=== PATIENT | female | born 1950 | race Caucasian/White ===

== ENCOUNTER 2019-04-25 08:23 | Outpatient (RCR) | payer MEDICARE, SELFPAY ==
[2019-02-22 08:59] LABS: Hematocrit 40.3 % (35.0-42.0); Hemoglobin 13.1 g/dL (11.7-13.8)
[2019-02-22 09:16] LABS: INR 2.2; Prothrombin Time 23.5 Seconds (9.64-11.0)
[2019-03-23 09:36] LABS: Hematocrit 43.3 % (35.0-42.0); Hemoglobin 14.2 g/dL (11.7-13.8)
[2019-03-23 09:48] LABS: INR 2.7; Prothrombin Time 28.8 Seconds (9.64-11.0)
[2019-04-25 08:40] LABS: Hematocrit 42.1 % (35.0-42.0); Hemoglobin 13.8 g/dL (11.7-13.8)
[2019-04-25 08:51] LABS: INR 2.7; Prothrombin Time 28.3 Seconds (9.64-11.0)
== END 2019-05-23 23:59 | disposition home or self-care (01) ==
LOC: CHSLAB 08:23
PROVIDERS: PCP Internal Medicine; Visit Provider Internal Medicine
DX: Z79.01 Long term (current) use of anticoagulants (principal); D64.9 Anemia, unspecified
CPT/HCPCS: 36415; 85014; 85018; 85610

== ENCOUNTER 2019-06-17 08:14 | Outpatient (CLI) | payer MEDICARE, MEDICAID, SELFPAY ==
[2019-06-17 08:27] LABS: Hematocrit 41.3 % (35.0-42.0); Hemoglobin 13.6 g/dL (11.7-13.8)
[2019-06-17 08:39] LABS: INR 3.8; Prothrombin Time 37.8 Seconds (9.64-11.0)
== END 2019-06-17 08:15 | disposition home or self-care (01) ==
LOC: CHSLAB 08:17
PROVIDERS: PCP Internal Medicine; Visit Provider Internal Medicine
DX: Z79.01 Long term (current) use of anticoagulants (principal); D64.9 Anemia, unspecified
CPT/HCPCS: 36415; 85014; 85018; 85610

== ENCOUNTER 2019-08-14 08:17 | Outpatient (RCR) | payer MEDICARE, SELFPAY ==
[2019-05-30 08:40] LABS: Hematocrit 39.9 % (35.0-42.0); Hemoglobin 13.2 g/dL (11.7-13.8)
[2019-05-30 09:05] LABS: INR 3.7; Prothrombin Time 36.1 Seconds (9.64-11.0)
[2019-07-04 08:23] LABS: Hematocrit 41.1 % (35.0-42.0); Hemoglobin 13.3 g/dL (11.7-13.8)
[2019-07-04 08:50] LABS: INR 2.8; Prothrombin Time 27.6 Seconds (9.64-11.0)
[2019-08-14 08:58] LABS: INR 2.4; Prothrombin Time 24.2 Seconds (9.64-11.0)
== END 2019-08-28 23:59 | disposition home or self-care (01) ==
LOC: CHSLAB 08:17
PROVIDERS: PCP Internal Medicine; Visit Provider Internal Medicine
DX: Z79.01 Long term (current) use of anticoagulants (principal); D64.9 Anemia, unspecified
CPT/HCPCS: 36415; 85014; 85018; 85610

== ENCOUNTER 2019-10-18 07:59 | Outpatient (CLI) | payer MEDICARE, MEDICAID, SELFPAY ==
[2019-10-18] MEDS: DENOSUMAB 60 MG/ML SYRINGE SUB-Q (08:15)
--- NOTE | 2019-10-18 08:20 | PC.NURSE ---
PT TO ROOM 226 AMB PER SELF. A&OX3. HAS NO QUESTIONS OR COMPLAINTS. PROLIA INJECTION GIVEN SUBQ IN R ARM. SITE WITHOUT REDNESS, EDEMA OR DRAINAGE. BANDAID APPLIED. PT TOLERATED WELL. DISCHARGED TO HOME AMB PER SELF.
== END 2019-10-18 08:00 | disposition home or self-care (01) ==
LOC: CHSTREATRM 08:01
PROVIDERS: PCP Internal Medicine; Visit Provider Internal Medicine
DX: M81.0 Age-related osteoporosis without current pathological fracture (principal)
CPT/HCPCS: 96372; J0897

== ENCOUNTER 2019-12-22 08:10 | Outpatient (RCR) | payer MEDICARE, SELFPAY ==
[2019-10-05 08:34] LABS: Hematocrit 38.8 % (35.0-42.0); Hemoglobin 12.5 g/dL (11.7-13.8)
[2019-10-05 08:52] LABS: INR 2.5; Prothrombin Time 24.8 Seconds (9.64-11.0)
[2019-11-22 08:23] LABS: INR 2.7; Prothrombin Time 27.1 Seconds (9.64-11.0)
[2019-12-22 08:25] LABS: Hematocrit 41.1 % (35.0-42.0); Hemoglobin 13.2 g/dL (11.7-13.8)
== END 2020-01-03 23:59 | disposition home or self-care (01) ==
LOC: CHSLAB 08:10
PROVIDERS: PCP Internal Medicine; Visit Provider Internal Medicine
DX: Z79.01 Long term (current) use of anticoagulants (principal); D64.9 Anemia, unspecified
CPT/HCPCS: 36415; 85014; 85018; 85610

== ENCOUNTER 2020-02-02 10:07 | Outpatient (CLI) | payer MEDICARE, MEDICAID, SELFPAY ==
--- NOTE | ~2020-02-02 | XR_ITS ---
EXAMINATION: XR knee LT min 4V DATE: 02/02/2020 10:46 INDICATION: Left knee pain. TECHNIQUE: 4 views of left knee were obtained. COMPARISON: None. FINDINGS: Bone alignment is normal. No fracture. There is severe osteoarthritis of lateral compartmen t and mild osteoarthritis of medial and patellofemoral compartments. There is a moderate-sized knee j oint effusion. IMPRESSION: 1. Severe left knee osteoarthritis. 2. Moderate-sized left knee joint effusion. Reviewed, dictated and finalized at location A.
== END 2020-02-02 10:08 | disposition home or self-care (01) ==
LOC: CHSIMG 10:09
PROVIDERS: PCP Internal Medicine; Visit Provider Internal Medicine
DX: M25.562 Pain in left knee (principal); M17.12 Unilateral primary osteoarthritis, left knee; M25.462 Effusion, left knee
CPT/HCPCS: 73564

== ENCOUNTER 2020-03-12 08:48 | Outpatient (CLI) | payer MEDICARE, MEDICAID, SELFPAY ==
--- NOTE | ~2020-03-12 | XR_ITS ---
XR knee LT min 4V 03/12/2020 09:26 Indication: Knee pain for 10 years Procedure: 5 views left knee Comparison: 02/02/2020 Findings: There is severe tricompartment osteoarthritis of the left knee, most advanced in the latera l compartment. Osteopenia. Small joint effusion. Vascular calcifications are present. No acute fractu re or traumatic malalignment. Impression: 1: There osteoarthritis of the left knee. 2: Small left knee effusion. Reviewed, dictated and finalized at location A. APPLIANCE ADJUSTER Impression: 1: There osteoarthritis of the left knee. 2: Small left knee effusion.
[2020-03-12 09:29] LABS: INR 4.4; Prothrombin Time 42.9 Seconds (9.64-11.0)
== END 2020-03-12 08:49 | disposition home or self-care (01) ==
LOC: CHSLAB 08:51
PROVIDERS: PCP Internal Medicine; Visit Provider Orthopaedic Surgery
DX: M25.562 Pain in left knee (principal); I48.91 Unspecified atrial fibrillation
CPT/HCPCS: 36415; 73564; 85610

== ENCOUNTER 2020-04-16 08:22 | Outpatient (RCR) | payer MEDICARE, SELFPAY ==
[2020-01-30 08:51] LABS: INR 3.2
[2020-03-27 08:48] LABS: INR 2.9; Prothrombin Time 30.3 Seconds (9.50-12.10)
[2020-04-16 08:44] LABS: Prothrombin Time 31.3 Seconds (9.50-12.10)
== END 2020-04-29 23:59 | disposition home or self-care (01) ==
LOC: CHSLAB 08:22
PROVIDERS: PCP Internal Medicine; Visit Provider Internal Medicine
DX: I48.91 Unspecified atrial fibrillation (principal)
CPT/HCPCS: 36415; 85610

== ENCOUNTER 2020-06-10 08:21 | Outpatient (CLI) | payer MEDICARE, SELFPAY ==
[2020-06-10 08:45] LABS: Basophils Absolute Auto 0.04 K/mm3 (0.00-0.10); Basophils Percent Auto 0.6 % (0.0-1.0); Eosinophils Absolute Auto 0.03 K/mm3 (0.02-0.50); Eosinophils Percent Auto 0.4 % (1.0-6.0); Hematocrit 40.7 % (35.0-42.0); Immature Granulocyte Absolute 0.02 K/mm3 (0.00-0.00); Immature Granulocyte Percent A 0.3 % (0.0-0.0); Lymphocytes Absolute Auto 2.86 K/mm3 (1.10-4.50); Lymphocytes Percent Auto 39.8 % (18.0-42.0); Mean Corpuscular HGB Conc 31.9 g/dL (32.0-36.0); Mean Corpuscular Hemoglobin 29.2 pg (27.0-31.0); Mean Corpuscular Volume 91.5 fL (78.0-102.0); Mean Platelet Volume 11.4 fl (9.2-11.8); Monocytes Absolute Auto 0.62 K/mm3 (0.10-0.90); Monocytes Percent Auto 8.6 % (2.0-11.0); Neutrophils Absolute Auto 3.6 K/mm3 (1.7-7.2); Neutrophils Percent Auto 50.3 % (50.0-70.0); Platelet Count Result 183 K/mm3 (150-420); Red Blood Count 4.45 M/mm3 (4.20-5.40); Red Cell Distribution Width 12.5 % (11.6-14.4); White Blood Count 7.2 K/mm3 (4.8-10.8)
[2020-06-10 08:51] LABS: INR 2.2; Prothrombin Time 22.4 Seconds (9.50-12.10)
[2020-06-10 09:20] LABS: Alanine Aminotransferase 44 U/L (14-59); Alkaline Phosphatase 52 U/L (46-116); Anion Gap 11 mmol/L (8-16); Aspartate Amino Transferase 38 U/L (15-37); Bilirubin,Total 0.6 mg/dL (0.00-1.00); Blood Urea Nitrogen 16 mg/dL (7-18); Calcium 9.8 mg/dL (8.5-10.1); Carbon Dioxide 28 mmol/L (21-32); Chloride 100 mmol/L (98-108); Cholesterol 168 mg/dL (0-200); Estimated Glomerular Filt Rate 58; Glucose 104 mg/dL (70-99); HDL Direct 67 mg/dL (40-60); LDL Cholesterol Calculated 80 mg/dL (<130); Osmolality Calculated 289 mOsm/kg (285-295); Potassium 4.8 mmol/L (3.5-5.1); Sodium 139 mmol/L (136-145); Total Protein 7.9 g/dL (6.4-8.2); Triglycerides 103 mg/dL (0-150)
[2020-06-10 09:41] LABS: Thyroid Stimulating Hormone < 0.01 uIU/mL (0.36-3.74)
== END 2020-06-10 08:22 | disposition home or self-care (01) ==
LOC: CHSLAB 08:25
PROVIDERS: PCP Internal Medicine; Visit Provider Internal Medicine
DX: E78.5 Hyperlipidemia, unspecified (principal); I10 Essential (primary) hypertension; I48.91 Unspecified atrial fibrillation; I49.9 Cardiac arrhythmia, unspecified
CPT/HCPCS: 36415; 80053; 80061; 84443; 85025; 85610

== ENCOUNTER 2020-07-24 08:06 | Outpatient (CLI) | payer MEDICARE, MEDICAID, SELFPAY ==
[2020-07-24] MEDS: DENOSUMAB 60 MG/ML SYRINGE SUB-Q (08:19)
--- NOTE | 2020-07-24 08:21 | PC.NURSE ---
Here for OP injection, tolerated well, ambulatory upon discharge to home
== END 2020-07-24 08:07 | disposition home or self-care (01) ==
PROVIDERS: PCP Internal Medicine; Visit Provider Internal Medicine
DX: M80.80XA Other osteoporosis with current pathological fracture, unspecified site, initial encounter for fracture (principal)
CPT/HCPCS: 96372; J0897

== ENCOUNTER 2020-08-13 08:15 | Outpatient (RCR) | payer MEDICARE, SELFPAY ==
[2020-05-21 08:48] LABS: INR 3.8; Prothrombin Time 38.2 Seconds (9.50-12.10)
[2020-07-16 08:35] LABS: INR 2.1; Prothrombin Time 21.9 Seconds (9.50-12.10)
[2020-08-13 08:45] LABS: INR 2.4; Prothrombin Time 24.1 Seconds (9.50-12.10)
== END 2020-08-19 23:59 | disposition home or self-care (01) ==
LOC: CHSLAB 08:15
PROVIDERS: PCP Internal Medicine; Visit Provider Internal Medicine
DX: I48.91 Unspecified atrial fibrillation (principal)
CPT/HCPCS: 36415; 85610

== ENCOUNTER 2020-11-12 08:17 | Outpatient (RCR) | payer MEDICARE, SELFPAY ==
[2020-09-12 08:40] LABS: INR 2.3; Prothrombin Time 23.9 Seconds (9.50-12.10)
[2020-10-10 08:39] LABS: INR 2.2; Prothrombin Time 22.8 Seconds (9.50-12.10)
[2020-11-12 08:37] LABS: INR 2.8
== END 2020-12-11 23:59 | disposition home or self-care (01) ==
LOC: CHSLAB 08:17
PROVIDERS: PCP Internal Medicine; Visit Provider Internal Medicine
DX: I48.91 Unspecified atrial fibrillation (principal)
CPT/HCPCS: 36415; 85610

== ENCOUNTER 2020-12-12 08:12 | Outpatient (CLI) | payer MEDICARE, SELFPAY ==
[2020-12-12 08:30] LABS: Basophils Absolute Auto 0.05 K/mm3 (0.00-0.10); Basophils Percent Auto 0.7 % (0.0-1.0); Eosinophils Absolute Auto 0.04 K/mm3 (0.02-0.50); Eosinophils Percent Auto 0.6 % (1.0-6.0); Hematocrit 40.9 % (35.0-42.0); Hemoglobin 13.3 g/dL (11.7-13.8); Immature Granulocyte Absolute 0.01 K/mm3 (0.00-0.00); Immature Granulocyte Percent A 0.1 % (0.0-0.0); Lymphocytes Absolute Auto 3.09 K/mm3 (1.10-4.50); Lymphocytes Percent Auto 43.5 % (18.0-42.0); Mean Corpuscular HGB Conc 32.5 g/dL (32.0-36.0); Mean Corpuscular Hemoglobin 29.8 pg (27.0-31.0); Mean Corpuscular Volume 91.7 fL (78.0-102.0); Mean Platelet Volume 10.8 fl (9.2-11.8); Monocytes Absolute Auto 0.53 K/mm3 (0.10-0.90); Monocytes Percent Auto 7.5 % (2.0-11.0); Neutrophils Absolute Auto 3.4 K/mm3 (1.7-7.2); Neutrophils Percent Auto 47.6 % (50.0-70.0); Platelet Count Result 209 K/mm3 (150-420); Red Blood Count 4.46 M/mm3 (4.20-5.40); Red Cell Distribution Width 13.2 % (11.6-14.4); White Blood Count 7.1 K/mm3 (4.8-10.8)
[2020-12-12 08:50] LABS: Prothrombin Time 20.9 Seconds (9.50-12.10)
[2020-12-12 09:43] LABS: Alanine Aminotransferase 34 U/L (14-59); Albumin Level 4.1 g/dL (3.4-5.0); Alkaline Phosphatase 54 U/L (46-116); Anion Gap 11 mmol/L (8-16); Aspartate Amino Transferase 35 U/L (15-37); Bilirubin,Total 0.6 mg/dL (0.00-1.00); Blood Urea Nitrogen 14 mg/dL (7-18); Calcium 9.5 mg/dL (8.5-10.1); Carbon Dioxide 28 mmol/L (21-32); Chloride 102 mmol/L (98-108); Estimated Glomerular Filt Rate > 60; Free T4 Free Thyroxine 1.45 ng/dL (0.76-1.46); Glucose 100 mg/dL (70-99); Osmolality Calculated 292 mOsm/kg (285-295); Potassium 4.4 mmol/L (3.5-5.1); Sodium 141 mmol/L (136-145); Total Protein 8.3 g/dL (6.4-8.2)
[2020-12-12 10:12] LABS: Thyroid Stimulating Hormone < 0.01 uIU/mL (0.36-3.74)
[2020-12-15 02:40] LABS: Thyroid Peroxidase Antibodies <1 IU/mL (<9)
[2020-12-17 14:13] LABS: Thyroid Stimulating Immunoglob 264 % baseline (<140)
== END 2020-12-12 08:13 | disposition home or self-care (01) ==
LOC: CHSLAB 08:15
PROVIDERS: PCP Internal Medicine; Visit Provider Internal Medicine
DX: I48.91 Unspecified atrial fibrillation (principal); E05.90 Thyrotoxicosis, unspecified without thyrotoxic crisis or storm; Z79.01 Long term (current) use of anticoagulants
CPT/HCPCS: 36415; 80053; 84439; 84443; 84445; 84481; 85025; 85610; 86376

== ENCOUNTER 2021-01-23 08:23 | Outpatient (CLI) | payer MEDICARE, SELFPAY ==
[2021-01-23 08:59] LABS: INR 2.4; Prothrombin Time 24.7 Seconds (9.50-12.10)
[2021-01-23 10:15] LABS: Free T3 4.04 pg/mL (2.18-3.98)
[2021-01-23 10:36] LABS: Thyroid Stimulating Hormone < 0.01 uIU/mL (0.36-3.74)
== END 2021-01-23 08:24 | disposition home or self-care (01) ==
LOC: CHSLAB 08:25
PROVIDERS: PCP Internal Medicine; Visit Provider Internal Medicine
DX: E03.9 Hypothyroidism, unspecified (principal); Z79.01 Long term (current) use of anticoagulants
CPT/HCPCS: 36415; 84439; 84443; 84481; 85610

== ENCOUNTER 2021-05-12 08:17 | Outpatient (RCR) | payer MEDICARE, SELFPAY ==
[2021-02-25 08:59] LABS: INR 1.9; Prothrombin Time 19.8 Seconds (9.50-12.10)
[2021-02-25 16:40] LABS: Thyroid Stimulating Hormone 0.05 uIU/mL (0.36-3.74)
[2021-04-01 09:11] LABS: INR 2.2
[2021-05-12 08:54] LABS: INR 3.8; Prothrombin Time 37.8 Seconds (9.50-12.10)
== END 2021-05-26 23:59 | disposition home or self-care (01) ==
LOC: CHSLAB 08:17
PROVIDERS: PCP Internal Medicine; Visit Provider Internal Medicine
DX: Z79.01 Long term (current) use of anticoagulants (principal); E05.90 Thyrotoxicosis, unspecified without thyrotoxic crisis or storm
CPT/HCPCS: 36415; 84443; 85610

== ENCOUNTER 2021-05-28 08:13 | Outpatient (RCR) | payer MEDICARE, SELFPAY ==
[2021-05-28 09:02] LABS: Prothrombin Time 50.6 Seconds (9.50-12.10)
[2021-05-28 10:10] LABS: INR 5.1
== END 2021-08-26 23:59 | disposition home or self-care (01) ==
LOC: CHSLAB 08:13
PROVIDERS: PCP Internal Medicine; Visit Provider Internal Medicine
DX: Z79.01 Long term (current) use of anticoagulants (principal)
CPT/HCPCS: 36415; 85610

== ENCOUNTER 2021-06-09 08:19 | Outpatient (CLI) | payer MEDICARE, SELFPAY ==
[2021-06-09 08:56] LABS: Basophils Absolute Auto 0.05 K/mm3 (0.00-0.10); Basophils Percent Auto 0.6 % (0.0-1.0); Eosinophils Absolute Auto 0.02 K/mm3 (0.02-0.50); Eosinophils Percent Auto 0.3 % (1.0-6.0); Hematocrit 34.9 % (35.0-42.0); Hemoglobin 10.8 g/dL (11.7-13.8); Immature Granulocyte Absolute 0.05 K/mm3 (0.00-0.00); Immature Granulocyte Percent A 0.6 % (0.0-0.0); Lymphocytes Absolute Auto 1.96 K/mm3 (1.10-4.50); Lymphocytes Percent Auto 24.8 % (18.0-42.0); Mean Corpuscular HGB Conc 30.9 g/dL (32.0-36.0); Mean Corpuscular Hemoglobin 30.9 pg (27.0-31.0); Mean Corpuscular Volume 99.7 fL (78.0-102.0); Mean Platelet Volume 10.8 fl (9.2-11.8); Monocytes Absolute Auto 0.72 K/mm3 (0.10-0.90); Monocytes Percent Auto 9.1 % (2.0-11.0); Neutrophils Absolute Auto 5.1 K/mm3 (1.7-7.2); Neutrophils Percent Auto 64.6 % (50.0-70.0); Nucleated Red Blood Cells Absolute Auto 0.04 K/mm3 (0.00-0.00); Nucleated Red Blood Cells Perc 0.5 % (0-0.0); Platelet Count Result 232 K/mm3 (150-420); Red Cell Distribution Width 15.5 % (11.6-14.4); White Blood Count 7.9 K/mm3 (4.8-10.8)
[2021-06-09 09:11] LABS: INR 3.5; Prothrombin Time 35.6 Seconds (9.50-12.10)
[2021-06-09 10:26] LABS: Alanine Aminotransferase 41 U/L (14-59); Albumin Level 3.7 g/dL (3.4-5.0); Alkaline Phosphatase 107 U/L (46-116); Anion Gap 17 mmol/L (8-16); Aspartate Amino Transferase 72 U/L (15-37); Bilirubin,Total 1.1 mg/dL (0.00-1.00); Blood Urea Nitrogen 17 mg/dL (7-18); Calcium 8.9 mg/dL (8.5-10.1); Carbon Dioxide 22 mmol/L (21-32); Chloride 86 mmol/L (98-108); Estimated Glomerular Filt Rate 43; Free T3 2.46 pg/mL (2.18-3.98); Free T4 Free Thyroxine 0.82 ng/dL (0.76-1.46); Glucose 105 mg/dL (70-99); Osmolality Calculated 261 mOsm/kg (285-295); Potassium 3.9 mmol/L (3.5-5.1); Sodium 125 mmol/L (136-145); Thyroid Stimulating Hormone 21.82 uIU/mL (0.36-3.74); Total Protein 7.3 g/dL (6.4-8.2)
== END 2021-06-09 08:20 | disposition home or self-care (01) ==
LOC: CHSLAB 08:23
PROVIDERS: PCP Internal Medicine; Visit Provider Internal Medicine
DX: E05.90 Thyrotoxicosis, unspecified without thyrotoxic crisis or storm (principal); Z79.01 Long term (current) use of anticoagulants
CPT/HCPCS: 36415; 80053; 84439; 84443; 84481; 85025; 85610

== ENCOUNTER 2021-06-15 09:19 | Inpatient (IN) | payer MEDICARE, MEDICAID, SELFPAY ==
[2021-06-15] VITALS (16 sets, daily range): BP systolic 92–113; BP diastolic 75–87; PULSE 86–143; RESP 18–22; TEMP 35.8–36.2; O2SAT 92–96; BMI 21.8
--- NOTE | ~2021-06-15 | XR_ITS ---
EXAMINATION: XR chest 1V portable INDICATION: Elevated BNP, fall TECHNIQUE: Portable AP chest at 1744 hours COMPARISON: 04/02/2014 FINDINGS: Cardiomegaly is noted. There is a mild diffuse interstitial pattern. Small pleural effusion s are suggested. There is no pneumothorax. IMPRESSION: 1. Cardiomegaly with mild pulmonary edema. Reviewed, dictated and finalized at location F. AND REWINDER OPERATOR
--- NOTE | ~2021-06-15 | XR_ITS ---
EXAMINATION: XR knee LT 3V EXAM DATE: 06/15/2021 12:08 INDICATION: Fall swelling. TECHNIQUE: Left knee frontal, crosstable lateral, orthogonal oblique projections for interpretation. Additional sunrise projection. Comparison is made to prior examination from 03/12/2020. FINDINGS: There are no acute fractures identified. There is severe swelling anterior to the patella, patellar tendon, probably focal hematoma given size. Only small amount of joint fluid. There is samreen re lateral tibiofemoral compartment primary osteoarthritis. Less arthritis at the other compartments. Popliteal arterial sclerosis. IMPRESSION: 1. Severe anterior swelling, could be focal hematoma. 2. Advanced lateral compartment osteoarthritis. 3. No acute fracture line identified. Reviewed, dictated and finalized at location A. TENANCE MECHANIC
--- NOTE | ~2021-06-15 | US_ITS ---
EXAMINATION: US venous doppler LE LT EXAM DATE: 06/16/2021 08:39 INDICATION: LE pain and swelling . TECHNIQUE: Multiple grayscale, color flow and Doppler images of the left lower extremity deep venous system were obtained and reviewed. There is no prior study for comparison. FINDINGS: The left common femoral, femoral and profunda veins demonstrate normal color flow, respirat ory variation, augmentation and compressibility. Compressibility, color flow confirmed within the le ft popliteal, posterior tibial, peroneal, and greater saphenous veins. IMPRESSION: 1. No left lower extremity deep venous thrombosis. Reviewed, dictated and finalized at location B. CISE PHYSIOLOGIST CERTIFIED
--- NOTE | 2021-06-15 09:38 | ED.LOWEXIN ---
HPI - Extremity Injury (Lower) General Chief Complaint: Extremity Problem,Nontraumatic Stated Complaint: left knee injury swelling Time Seen by Provider: 06/15/21 09:29 Source: patient and RN notes reviewed Mode of arrival: wheelchair Limitations: no limitations History of Present Illness HPI Narrative: Patient states that she tripped over some carpet at home landing on the knee approximately 9 days ago. She says continue to cause her pain she has been able to get around with a cane. She comes in for further evaluation. complaint: knee injury Onset (ago): day(s) (9) Injury: Left: knee Type of Injury: blunt Place: home Severity: moderate Relieving factors: nothing Exacerbating factors: weight bearing, movement and palpation Context: fall Associated symptoms: swelling and able to partially bear weight Other symptoms: none Related Data Home Medications Medication Instructions Recorded Confirmed warfarin 2 mg tablet 2 mg PO DAILY 03/12/20 amlodipine 2.5 mg PO DAILY 06/15/21 06/15/21 hydrochlorothiazide 12.5 mg PO DAILY 06/15/21 06/15/21 pravastatin 10 mg PO DAILY 06/15/21 06/15/21 propylthiouracil 50 mg PO BID 06/15/21 06/15/21 Allergies Allergy/AdvReac Type Severity Reaction Status Date / Time morphine Allergy Unknown Verified 06/15/21 13:00 Review of Systems Review of Systems: All systems reviewed & are unremarkable except as noted in HPI and below Cardiovascular: Cardiovascular: Denies chest pain Respiratory: Respiratory: Denies cough, Denies dyspnea and Denies wheezing PMFSH Past Medical History Medical History Afib Hypertension Left knee DJD Surgical History Surgical History History of total left hip arthroplasty History of total right hip arthroplasty History of total right knee replacement (TKR) Social History Social History Smoking status: Current every day smoker Tobacco type: cigarettes Alcohol intake: current Gender identity (if verbalized by the patient): Female Exam Const: General: healthy appearing, no acute distress and alert Nutritional Appearance: thin Orientation/consciousness: patient oriented x3 HENMT: Head: normal to inspection Ears: external ears normal Eyes: Conjunctivae: conjunctivae normal Pupils: Equal, round and reactive pupils present EOM: EOMs intact bilaterally Neck: Neck: normal visual inspection Resp: Effort & Inspection: normal respiratory effort Auscultation: clear to auscultation bilaterally Cardio: Rate: tachycardic Rhythm: abnormal rhythm irregularly irregular GI: GI Palp: Yes Soft to palpation, No Tenderness to palpation present (GI) and No Guarding due to palpation present (GI) Auscultation: normal bowel sounds Back/Spine/Pelvis: Cervical Spine: cervical ROM normal Thoracic/Lumbar Spine: thoraco-lumbar ROM normal Skin: General skin exam: normal color Rashes: no rashes Neuro: General: patient oriented x3, moves all extremities, no meningeal signs and no focal motor deficits Speech: normal speech Extrem: General: normal exam except as noted and edema (2+ to mid-burns) bilateral Left lower extremity: knee Details: abnormal to inspection, tenderness Location: of the patella and of the tibial tuberosity, swelling Location: of the patella and of the tibial tuberosity, abnormal ROM Details: pain with active ROM Details: with extension and with flexion and pain with passive ROM Details: with extension and with flexion and ecchymosis proximal lower leg Details: single Psych: Appearance: grossly normal and well kempt Mental Status: mental status grossly normal Affect: normal affect Attitude: cooperative Thought content: Yes Normal thought content present Course Course Emergency Course: Patient initially given 10 mg Cardizem IV push which did not make any significant difference in her
--- NOTE | 2021-06-15 10:05 | ECG_ITS ---
Measurements Intervals [place] Rate: 142 P: AR: 0 QRS: -25 QRSD: 90 T: 150 QT: 324 QTc: 499 Interpretive Statements ATRIAL FIBRILLATION WITH RAPID VENTRICULAR RESPONSE INCOMPLETE RIGHT BUNDLE BRANCH BLOCK DELAYED PRECORDIAL R/S TRANSITION BORDERLINE ST-T WAVE ABNORMALITY- LAT/HIGH LAT LEADS BASELINE ARTIFACT- I, II, V2-V6 ABNORMAL ECG Electronically Signed On 06-15-2021 13:12:30 CASTER OPERATOR by Deepak Nugent D.O.
[2021-06-15 10:06] LABS: Basophils Absolute Auto 0.01 K/mm3 (0.00-0.10); Basophils Percent Auto 0.1 % (0.0-1.0); Eosinophils Absolute Auto 0.01 K/mm3 (0.02-0.50); Eosinophils Percent Auto 0.1 % (1.0-6.0); Hematocrit 33.5 % (35.0-42.0); Hemoglobin 11.1 g/dL (11.7-13.8); Immature Granulocyte Absolute 0.04 K/mm3 (0.00-0.00); Immature Granulocyte Percent A 0.5 % (0.0-0.0); Lymphocytes Absolute Auto 1.66 K/mm3 (1.10-4.50); Lymphocytes Percent Auto 20.1 % (18.0-42.0); Mean Corpuscular HGB Conc 33.1 g/dL (32.0-36.0); Mean Corpuscular Hemoglobin 31.4 pg (27.0-31.0); Mean Corpuscular Volume 94.9 fL (78.0-102.0); Mean Platelet Volume 10.7 fl (9.2-11.8); Monocytes Absolute Auto 0.52 K/mm3 (0.10-0.90); Monocytes Percent Auto 6.3 % (2.0-11.0); Neutrophils Percent Auto 72.9 % (50.0-70.0); Platelet Count Result 253 K/mm3 (150-420); Red Blood Count 3.53 M/mm3 (4.20-5.40); Red Cell Distribution Width 16.2 % (11.6-14.4); White Blood Count 8.3 K/mm3 (4.8-10.8)
[2021-06-15] MEDS: dilTIAZem HCl INJ 25 MG/5 ML VIAL 15 MG IV PUSH (10:18)
[2021-06-15 10:29] LABS: Anion Gap 14 mmol/L (8-16); Blood Urea Nitrogen 32 mg/dL (7-18); Calcium 9.2 mg/dL (8.5-10.1); Carbon Dioxide 27 mmol/L (21-32); Chloride 93 mmol/L (98-108); Estimated CRCL calculation 33 ml/min; Estimated Glomerular Filt Rate 44; Glucose 101 mg/dL (70-99); NT Pro B Type Natriuretic Pept 17580 pg/mL (0-125); Osmolality Calculated 284 mOsm/kg (285-295); Potassium 3.7 mmol/L (3.5-5.1); Prothrombin Time 49.9 Seconds (9.50-12.10); Sodium 134 mmol/L (136-145)
[2021-06-15] MEDS: dilTIAZem 100 MG/100 ML 100 MG/100 ML BAG 10 MG IV CONT (10:38)
[2021-06-15] MEDS: dilTIAZem HCl INJ 25 MG/5 ML VIAL 20 MG IV PUSH (11:26)
--- NOTE | 2021-06-15 12:56 | PC.NURSE ---
marco Aldridge RN on 2nd floor provided room assignment of 205. Phone report given to TONIA Etienne.
--- NOTE | 2021-06-15 15:27 | ADMGEN ---
This patient, Destiny Jauregui, was admitted to 2nd Floor Room 205-2. Patient oriented to hospital policies and general routines including ID bracelet, bed and alarms, visiting hours, pain management, procedures, bathroom and other care routines, personal items, smoking policy, room service/diet, and visiting hours. Information on how to activate the Rapid Response Team has been discussed. Patient encouraged to report perceived risks to care and to ask questions if they do not understand what they are told or what they should do.
--- NOTE | 2021-06-15 15:33 | PC.NURSE ---
Pt. reports swelling in BLE for past 3 weeks. Increased coughing when talking and / or eating x 2 weeks. Fall at home 9 days ago, tripped on corner of carpet pulled up. Patient uses walker at home when ambulating. Bruising to LLE from fall.
[2021-06-15] MEDS: dilTIAZem HCl INJ 25 MG/5 ML VIAL IV PUSH ×2 (16:47→21:18)
[2021-06-15] MEDS: propylthiouraciL 50 MG TABLET PO (17:35)
[2021-06-15] MEDS: FUROSEMIDE INJ 20 MG/2 ML VIAL IV PUSH (17:50)
[2021-06-15] MEDS: METOPROLOL TARTRATE 12.5 MG TABLET PO (19:49)
--- NOTE | 2021-06-15 20:52 | PC.NURSE ---
1939 Macario Jones, hospitalist, called to clarify Cardizem drip orders. Nurse to give Metoprolol and monitor patient's pulse for 1 hour. If heart rate stays below 100 consistently then d/c the Cardizen IV.
--- NOTE | 2021-06-15 21:57 | PC.NURSE ---
Macario Jones, Hospitalist notified that Cardizem IVP given and patient's pulse has consistently been below 100. D/C cardizem drip and monitor status. If pulse goes up above 100 for an hour call Camilo.
--- NOTE | 2021-06-15 23:35 | PC.NURSE ---
Pt ambulated to commode and returned back to bed with walker and standby assist. Pt tolerated transfer well and stated she had no other needs at this time. Call light within reach.
[2021-06-16] VITALS (15 sets, daily range): BP systolic 74–118; BP diastolic 48–82; PULSE 82–136; RESP 16–20; TEMP 36.4–36.7; O2SAT 76–97
[2021-06-16] MEDS: FUROSEMIDE INJ 100 MG/10 ML VIAL 80 MG IV PUSH (01:32)
--- NOTE | 2021-06-16 03:27 | PC.NURSE ---
Notified YASMEEN Osuna regarding pt's increasing pulse rate; New orders received and noted to restart the cardizem drip.
[2021-06-16] MEDS: METOPROLOL TARTRATE INJ 5 MG/5 ML VIAL IV PUSH ×2 (04:22→12:14)
[2021-06-16] MEDS: dilTIAZem 100 MG/100 ML 100 MG/100 ML BAG 10 MG IV CONT (04:25)
[2021-06-16 05:47] LABS: Hematocrit 31.1 % (35.0-42.0); Hemoglobin 10.4 g/dL (11.7-13.8); Mean Corpuscular HGB Conc 33.4 g/dL (32.0-36.0); Mean Corpuscular Hemoglobin 31.4 pg (27.0-31.0); Platelet Count Result 230 K/mm3 (150-420); Red Blood Count 3.31 M/mm3 (4.20-5.40); Red Cell Distribution Width 16.1 % (11.6-14.4); White Blood Count 7.5 K/mm3 (4.8-10.8)
[2021-06-16 06:15] LABS: Alanine Aminotransferase 170 U/L (14-59); Albumin Level 3.3 g/dL (3.4-5.0); Alkaline Phosphatase 104 U/L (46-116); Anion Gap 13 mmol/L (8-16); Aspartate Amino Transferase 195 U/L (15-37); Bilirubin,Total 1.7 mg/dL (0.00-1.00); Blood Urea Nitrogen 30 mg/dL (7-18); Calcium 8.9 mg/dL (8.5-10.1); Carbon Dioxide 31 mmol/L (21-32); Chloride 93 mmol/L (98-108); Estimated CRCL calculation 36 ml/min; Estimated Glomerular Filt Rate 47; Glucose 99 mg/dL (70-99); Magnesium 1.5 mg/dL (1.8-2.4); Osmolality Calculated 290 mOsm/kg (285-295); Potassium 2.7 mmol/L (3.5-5.1); Sodium 137 mmol/L (136-145); Total Protein 6.8 g/dL (6.4-8.2)
[2021-06-16 06:16] LABS: NT Pro B Type Natriuretic Pept 12587 pg/mL (0-125)
[2021-06-16] MEDS: SODIUM CHLORIDE 0.9% IV 1,000 ML 150 ML IV CONT (08:31)
[2021-06-16] MEDS: KCL 20 MEQ/SW 100 ML 100 ML 50 MEQ IVPB ×2 (08:37→10:37)
[2021-06-16] MEDS: METOPROLOL TARTRATE 25 MG TABLET PO ×2 (09:23→21:17)
[2021-06-16] MEDS: propylthiouraciL 50 MG TABLET PO ×2 (09:23→17:35)
[2021-06-16] MEDS: PRAVASTATIN SODIUM 10 MG TABLET PO (09:23)
[2021-06-16] MEDS: PANTOPRAZOLE SODIUM IV 40 MG VIAL IV PUSH (09:24)
[2021-06-16] MEDS: FUROSEMIDE INJ 40 MG/4 ML VIAL IV PUSH ×2 (09:24→17:36)
--- NOTE | 2021-06-16 11:00 | PM.IMHP ---
H&P: HPI History of Present Illness Date/Time: 06/16/21 11:00 this is a 70-year-old female who presented to our emergency department with complaints of left leg pain status post mechanical fall that occurred 1 week ago. Patient has a past medical history of A. fib, hypertension and left leg DJD. According to the patient approximately 1 week ago she was walking in her foot got stuck in a rip in her rug. She fell and injured her left leg. She noted that her knee swolled and she developed discoloration from her ankle to her mid thigh. She said while she was at home she did apply ice to the site. She still has a moderate amount of edema and discoloration to the leg. Doppler ruled out DVT. Patient also notes she has a history of A. fib and she sees Dr. Sequeira's in [place]. The last time she visited him was approximately 1 year ago and her A. fib was controlled at that time the only thing that she is on for her A. fib is warfarin she did not need a beta-selina for rate control. This visit patient was found to be in A. fib with RVR with a heart rate of 142 . vital signs 96/74 with a MAP of 81 heart rate of 113, respiratory rate of 20, 92% on room air, WBCs 8.3, hemoglobin 11.1, hematocrit 33.5, platelets 253, sodium 134, potassium 3.7, BUN 32, creatinine 1.22, glucose 101, total bili 1.7, AST 195, ALT 170, BNP 57171, x-ray of the knee no acute fracture dislocation hematoma noted. Patient placed on a Cardizem drip. Cardizem IV push given along with metoprolol metoprolol 25 mg every 12 hours given. The patient denies SOB, CP, palpitation, extremity numbness, lightheadedness, dizziness, constipation, diarrhea, chills, or fever. Chief Complaint: Left knee pain Review of Systems Review of Systems: A 14 organ system Review of Systems was performed and pertinent positives included in the HPI, otherwise remaining ROS is negative. [facility] Past Medical History Medical History (Updated 06/16/21 @ 11:51 by TALIA Rogers) Afib Hypertension Left knee DJD Surgical History Surgical History History of total left hip arthroplasty History of total right hip arthroplasty History of total right knee replacement (TKR) Social History Social History Smoking status: Current every day smoker Tobacco type: cigarettes Alcohol intake: current Drinks per week: 20 Substance use: never Substance use type: does not use Gender identity (if verbalized by the patient): Female Spiritual care concerns: No Meds Home Medications and Allergies Home Medications Medication Instructions Recorded Confirmed Type warfarin 2 mg tablet 1.5 mg PO DAILY 03/12/20 06/15/21 History amlodipine 2.5 mg PO DAILY 06/15/21 06/15/21 History hydrochlorothiazide 12.5 mg PO DAILY 06/15/21 06/15/21 History pravastatin 10 mg PO DAILY 06/15/21 06/15/21 History propylthiouracil 50 mg PO BID 06/15/21 06/15/21 History Allergies Allergy/AdvReac Type Severity Reaction Status Date / Time morphine Allergy Unknown Verified 06/15/21 13:00 Vital Signs Vital Signs - 24 hr 06/15/21 11:15 06/15/21 11:26 06/15/21 11:30 Temperature Pulse Rate 143 H 88 86 Respiratory Rate 18 Blood Pressure 104/84 92/79 L Pulse Oximetry 93 06/15/21 12:45 06/15/21 13:19 06/15/21 13:53 Temperature Pulse Rate 131 H 121 H 113 H Respiratory Rate 18 18 Blood Pressure 107/82 109/81 Pulse Oximetry 94 92 93 06/15/21 14:00 06/15/21 15:00 06/15/21 15:08 Temperature 97.1 F L 97.1 F L Pulse Rate 121 H 117 H 121 H Respiratory Rate 22 H 22 H Blood Pressure 100/75 100/75 Pulse Oximetry 92 92 92 06/15/21 19:49 06/15/21 19:50 06/15/21 20:00 Temperature 96.4 F L Pulse Rate 114 H 114 H 114 H Respiratory Rate 20 Blood Pressure 93/76 L 93/76 L Pulse Oximetry 96 06/15/21 20:57 06/15/21 21:20 06/16/21 00:00 Temperature 97.6 F Pulse Rate 1
[2021-06-16] MEDS: dilTIAZem 100 MG/100 ML 100 MG/100 ML BAG 15 MG IV CONT (12:19)
[2021-06-16] MEDS: MAGNESIUM SULF 2 GM/WATER 50ML 2 GM/50 ML BAG IVPB (12:38)
[2021-06-16 12:43] LABS: INR 3.9; Prothrombin Time 38.9 Seconds (9.50-12.10)
[2021-06-16] MEDS: HYDROcodone/acetaminophen (*CRX) 5-325 MG TABLET 1 TAB PO ×2 (12:58→21:18)
--- NOTE | 2021-06-16 20:45 | PC.NURSE ---
Patient complaining of nausea and coughing up small amount of clear/white phlegm. PRN Zofran given and patient repositioned. Patient denies chest, arm, chest pain. Denies shortness of breath. Call light in reach.
[2021-06-16] MEDS: ONDANSETRON INJ 4 MG/2 ML VIAL IV PUSH (20:53)
[2021-06-16] MEDS: traZODone HCL 50 MG TABLET PO (21:17)
[2021-06-17] VITALS (9 sets, daily range): BP systolic 75–96; BP diastolic 48–80; PULSE 96–113; RESP 16–20; TEMP 36.3–36.9; O2SAT 90–97
--- NOTE | 2021-06-17 00:05 | PC.NURSE ---
Patient's BP 82/48 with HR 104, RESP 16. SpO2 76% on room air. Patient shows no signs of shortness of breath, chest pain, discomfort and denies all. Patient started on O2 @ 2 lpm/nc and within one minute SpO2 increased to 93%. Patient's buchanan catheter has only had 50ml from 1830 until midnight and patient's pad was wet once. Camilo Jones EXTRUSION LINE OPERATOR updated on patient's condition by Lyubov Ramirez RN, Charge Nurse. Per EXTRUSION LINE OPERATOR nurses are to notify her if patient's systolic BP goes below 80. No orders received.
[2021-06-17 05:36] LABS: Hematocrit 32.1 % (35.0-42.0); Hemoglobin 10.6 g/dL (11.7-13.8); Mean Corpuscular Hemoglobin 31.2 pg (27.0-31.0); Mean Corpuscular Volume 94.4 fL (78.0-102.0); Mean Platelet Volume 10.8 fl (9.2-11.8); Platelet Count Result 224 K/mm3 (150-420); Red Cell Distribution Width 16.1 % (11.6-14.4); White Blood Count 7.8 K/mm3 (4.8-10.8)
[2021-06-17 05:54] LABS: Alanine Aminotransferase 143 U/L (14-59); Albumin Level 2.9 g/dL (3.4-5.0); Alkaline Phosphatase 132 U/L (46-116); Anion Gap 8 mmol/L (8-16); Aspartate Amino Transferase 153 U/L (15-37); Bilirubin,Total 1.5 mg/dL (0.00-1.00); Blood Urea Nitrogen 41 mg/dL (7-18); Calcium 8.3 mg/dL (8.5-10.1); Carbon Dioxide 33 mmol/L (21-32); Chloride 95 mmol/L (98-108); Estimated CRCL calculation 21 ml/min; Estimated Glomerular Filt Rate 24; Glucose 126 mg/dL (70-99); Osmolality Calculated 294 mOsm/kg (285-295); Potassium 3.7 mmol/L (3.5-5.1); Sodium 136 mmol/L (136-145); Total Protein 6.2 g/dL (6.4-8.2)
[2021-06-17 05:58] LABS: INR 4.6; Prothrombin Time 46.1 Seconds (9.50-12.10)
[2021-06-17] MEDS: PANTOPRAZOLE SODIUM IV 40 MG VIAL IV PUSH (09:28)
[2021-06-17] MEDS: METOPROLOL TARTRATE 12.5 MG TABLET PO ×2 (09:28→21:34)
[2021-06-17] MEDS: propylthiouraciL 50 MG TABLET PO ×2 (09:29→16:41)
[2021-06-17] MEDS: FUROSEMIDE INJ 40 MG/4 ML VIAL 20 MG IV PUSH (09:29)
--- NOTE | 2021-06-17 09:37 | P.PN_ITS ---
Progress Note: A&P Assessment and Plan (1) Atrial fibrillation with RVR: Code(s): I48.91 - Unspecified atrial fibrillation Status: Acute Assessment and Plan: * Controlled, converted * History of A. fib prescribed warfarin no beta-selina needed for rate control in the past * Dr. Sequeira patient head counselor, FANNY sent Dr. Sequeira office for interpretation * Patient started on Cardizem drip given Cardizem IV push then metoprolol. Patient currently on metoprolol 12.2 twice daily. We will continue to monitor patient's blood pressure soft with metoprolol 25 twice daily * Continue property assessment monitor * Patient denies any chest pains or shortness of breath * Warfarin on hold supratherapeutic 5.0>3.9>4.6, will monitor daily and resume when appropriate. * Patient will more than likely discharged with a beta-selina (2) Left knee DJD: Qualifiers: Osteoarthritis type: primary Qualified Code(s): M17.12 - Unilateral primary osteoarthritis, left knee Code(s): M17.12 - Unilateral primary osteoarthritis, left knee Status: Acute Assessment and Plan: * Will consult PT OT (3) Electrolyte imbalance: Code(s): E87.8 - Other disorders of electrolyte and fluid balance, not elsewhere classified Status: Acute Assessment and Plan: * Resolved * Potassium3.7>2.7>3.7 magnesium1.5>2.0secondary with the use of diuretics * Will replace with supplements * Will monitor (4) Acute kidney injury: Code(s): N17.9 - Acute kidney failure, unspecified Status: Acute Assessment and Plan: * BUN/creatinine 32/1.22>30/1.15>41>2.04 renal function worsened due to use of diuretics. Have decreased diuretics will trend * Renal dose medication * Avoid nephrotoxic agents (5) Elevated liver function tests: Code(s): R79.89 - Other specified abnormal findings of blood chemistry Status: Acute Assessment and Plan: * Improving * Secondary to heart failure versus hepatitis versus trauma versus medication * Will stop statins for now * Total bili 1.7>1.5, AST 195,>153 ALT 170>143, will trend * Will closely monitor (6) Traumatic hematoma of left knee: Code(s): S80.02XA - Contusion of left knee, initial encounter Status: Acute Assessment and Plan: * X-ray of the knee indicates severe anterior swelling possible local hematoma * Continue comfort measures * Will consult PT OT (7) Hypertension: Code(s): I10 - Essential (primary) hypertension Status: Inactive Assessment and Plan: * Blood pressure soft secondary to use of beta-selina * Once patient convert will continue home medication amlodipine 2.5 and hydrochlorothiazide. Patient would need medication adjustment on discharge amlodipine will probably be replaced with metoprolol and hydrochlorothiazide will probably be replaced with Lasix to treat her congestive heart failure (8) Elevated brain natriuretic peptide (BNP) level: Code(s): R79.89 - Other specified abnormal findings of blood chemistry Status: Acute Assessment and Plan: * [id number] * Patient received Lasix * Chest x-ray indicate pulmonary edema * Echo pending Subjective Date/time seen: 06/17/21 09:37 patient notes that she slept well overnight. She also notes that when she swallows it feels as if something is stuck in her throat. Patient notes that this is chronic for her. Informed patient that she needs to notify her primary care physician she may possibly need a test to determine whether or not she has a stricture in her esophagus. Patient will
--- NOTE | 2021-06-17 09:37 | WPDPN ---
Progress Note: A&P Assessment and Plan (1) Atrial fibrillation with RVR: Code(s): I48.91 - Unspecified atrial fibrillation Status: Acute Assessment and Plan: Controlled, converted History of A. fib prescribed warfarin no beta-selina needed for rate control in the past Dr. Sequeira patient housing coordinator, FANNY sent Dr. Sequeira office for interpretation Patient started on Cardizem drip given Cardizem IV push then metoprolol. Patient currently on metoprolol 12.2 twice daily. We will continue to monitor patient's blood pressure soft with metoprolol 25 twice daily Continue silk examiner Patient denies any chest pains or shortness of breath Warfarin on hold supratherapeutic 5.0>3.9>4.6, will monitor daily and resume when appropriate. Patient will more than likely discharged with a beta-selina (2) Left knee DJD: Qualifiers: Osteoarthritis type: primary Qualified Code(s): M17.12 - Unilateral primary osteoarthritis, left knee Code(s): M17.12 - Unilateral primary osteoarthritis, left knee Status: Acute Assessment and Plan: Will consult PT OT (3) Electrolyte imbalance: Code(s): E87.8 - Other disorders of electrolyte and fluid balance, not elsewhere classified Status: Acute Assessment and Plan: Resolved Potassium3.7>2.7>3.7 magnesium1.5>2.0secondary with the use of diuretics Will replace with supplements Will monitor (4) Acute kidney injury: Code(s): N17.9 - Acute kidney failure, unspecified Status: Acute Assessment and Plan: BUN/creatinine 32/1.22>30/1.15>41>2.04 renal function worsened due to use of diuretics. Have decreased diuretics will trend Renal dose medication Avoid nephrotoxic agents (5) Elevated liver function tests: Code(s): R79.89 - Other specified abnormal findings of blood chemistry Status: Acute Assessment and Plan: Improving Secondary to heart failure versus hepatitis versus trauma versus medication Will stop statins for now Total bili 1.7>1.5, AST 195,>153 ALT 170>143, will trend Will closely monitor (6) Traumatic hematoma of left knee: Code(s): S80.02XA - Contusion of left knee, initial encounter Status: Acute Assessment and Plan: X-ray of the knee indicates severe anterior swelling possible local hematoma Continue comfort measures Will consult PT OT (7) Hypertension: Code(s): I10 - Essential (primary) hypertension Status: Inactive Assessment and Plan: Blood pressure soft secondary to use of beta-selina Once patient convert will continue home medication amlodipine 2.5 and hydrochlorothiazide. Patient would need medication adjustment on discharge amlodipine will probably be replaced with metoprolol and hydrochlorothiazide will probably be replaced with Lasix to treat her congestive heart failure (8) Elevated brain natriuretic peptide (BNP) level: Code(s): R79.89 - Other specified abnormal findings of blood chemistry Status: Acute Assessment and Plan: [id number] Patient received Lasix Chest x-ray indicate pulmonary edema Echo pending Subjective Date/time seen: 06/17/21 09:37 patient notes that she slept well overnight. She also notes that when she swallows it feels as if something is stuck in her throat. Patient notes that this is chronic for her. Informed patient that she needs to notify her primary care physician she may possibly need a test to determine whether or not she has a stricture in her esophagus. Patient will follow up with her primary care physician. patient denied physical therapy/Occupational Therapy I informed her as an inpatient we will start physical therapy/Occupational Therapy to prevent any complications. Patient agrees. The patient denies SOB, CP, palpitation, extremity numbness, lightheadedness, dizziness, constipation, diarrhea, chills, or fever. It was reported that patient sats dropped whil
--- NOTE | 2021-06-17 13:38 | PC.NURSE ---
patient c/o she has trouble swallowing. claims this has been ongoing for years. only picks at food and drink. has been sipping at water and encouraged. L knee not as swollen or as tender as it has been or as deep purple as per patient. buchanan has scant urine return. water/wastewater project engineer was aware.
--- NOTE | 2021-06-17 14:39 | PM.EVENT ---
Event Note Event Note Event Note: patient lasix, norco and tramadol dc due to worsening renal function. Patient hypotensive metoprolol on hold. Will bolus patient with 500ml .Chest xray in the am.for pain started tylenol and lidocaine patch.
[2021-06-17] MEDS: ONDANSETRON INJ 4 MG/2 ML VIAL IV PUSH (15:41)
[2021-06-17] MEDS: SODIUM CHLORIDE 0.9% IV 500 ML IV CONT ×2 (15:41→19:03)
[2021-06-17] MEDS: LIDOCAINE 5% PATCH 1 PATCH TRANSDERM (15:42)
[2021-06-17 18:39] LABS: Hematocrit 31.6 % (35.0-42.0); Hemoglobin 10.5 g/dL (11.7-13.8); Mean Corpuscular HGB Conc 33.2 g/dL (32.0-36.0); Mean Corpuscular Hemoglobin 31.7 pg (27.0-31.0); Mean Corpuscular Volume 95.5 fL (78.0-102.0); Platelet Count Result 224 K/mm3 (150-420); Red Blood Count 3.31 M/mm3 (4.20-5.40); Red Cell Distribution Width 15.9 % (11.6-14.4); White Blood Count 8.7 K/mm3 (4.8-10.8)
[2021-06-17 18:55] LABS: Alanine Aminotransferase 141 U/L (14-59); Albumin Level 2.9 g/dL (3.4-5.0); Alkaline Phosphatase 141 U/L (46-116); Anion Gap 9 mmol/L (8-16); Aspartate Amino Transferase 164 U/L (15-37); Bilirubin,Total 1.5 mg/dL (0.00-1.00); Blood Urea Nitrogen 48 mg/dL (7-18); Calcium 8.2 mg/dL (8.5-10.1); Carbon Dioxide 31 mmol/L (21-32); Chloride 93 mmol/L (98-108); Estimated CRCL calculation 19 ml/min; Estimated Glomerular Filt Rate 21; Glucose 110 mg/dL (70-99); Osmolality Calculated 289 mOsm/kg (285-295); Potassium 3.8 mmol/L (3.5-5.1); Sodium 133 mmol/L (136-145); Total Protein 6.1 g/dL (6.4-8.2)
--- NOTE | 2021-06-17 18:57 | ECG_ITS ---
Measurements Intervals [place] Rate: 104 P: GA: 0 QRS: -18 QRSD: 91 T: 185 QT: 358 QTc: 472 Interpretive Statements ATRIAL FIBRILLATION WITH RAPID VENTRICULAR RESPONSE ST DEVIATION AND MODERATE T-WAVE ABNORMALITY, CONSIDER LATERAL ISCHEMIA [-0.1+ mV T- WAVE IN I/aVL/V5/V6] ABNORMAL EKG COMPARED TO ECG 06/15/2021 10:11:[address] AND T-WAVE ABNORMALITIES ARE MORE PROMINENT Electronically Signed On 06-18-2021 8:58:17 MANAGER CORPORATE by Wilmar Khan M.D.
[2021-06-17 19:21] LABS: NT Pro B Type Natriuretic Pept 14951 pg/mL (0-125)
[2021-06-17 19:22] LABS: Troponin I 55.6 ng/L (0.00-60.4)
[2021-06-17] MEDS: SODIUM CHLORIDE 0.9% IV 1,000 ML 999 ML IV CONT (20:21)
[2021-06-17 20:28] LABS: Lactic Acid Reflex 1.8 mmol/L (0.4-2.0)
--- NOTE | 2021-06-17 21:43 | P.TS_ITS ---
Transfer Discharge Sum: Prov Provider Date of admission: 06/15/21 13:24 Primary care physician: Jorge A Lewis MD Admitting clinician: Cale Heath MD Attending physician on admission: Camilo Jones Attending physician on discharge: Archie Heath Discharging clinician: Camilo Jones Anticipated date of transfer: 06/17/21 Receiving physician/facility: Dr Spencer DS: Admitting Diagnosis Discharge Date 06/17/2021 Admitting Diagnosis afib with rvr, left knee injury DS: Discharge Diagnosis Discharge Diagnosis (1) Atrial fibrillation with RVR: Code(s): I48.91 - Unspecified atrial fibrillation Status: Acute Assessment and Plan: * History of A. 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 Sequeira office for interpretation * Patient started on Cardizem drip given Cardizem IV push then metoprolol. * Patient denies any chest pains or shortness of breath * Warfarin on hold supratherapeutic 5.0>3.9>4.6, will monitor daily and resume when appropriate. * repeat ekg indicate afib with rvr. Patient will tranfer to [facility] (2) Left knee DJD: Qualifiers: Osteoarthritis type: primary Qualified Code(s): M17.12 - Unilateral primary osteoarthritis, left knee Code(s): M17.12 - Unilateral primary osteoarthritis, left knee Status: Acute Assessment and Plan: * Will consult PT OT (3) Electrolyte imbalance: Code(s): E87.8 - Other disorders of electrolyte and fluid balance, not elsewhere classified Status: Acute Assessment and Plan: * Resolved * Potassium3.7>2.7>3.7 magnesium1.5>2.0secondary with the use of diuretics * Will replace with supplements K 40meq and mag 2 g (4) Acute kidney injury: Code(s): N17.9 - Acute kidney failure, unspecified Status: Acute Assessment and Plan: * BUN/creatinine 32/1.22>30/1.15>41>2.04 renal function worsened due to use of diuretics. dc diuretic * Renal dose medication * Avoid nephrotoxic agents (5) Elevated liver function tests: Code(s): R79.89 - Other specified abnormal findings of blood chemistry Status: Acute Assessment and Plan: * Secondary to heart failure versus hepatitis versus trauma versus medication * Will stop statins for now * Total bili 1.7>1.5, AST 195,>153 ALT 170>143, will trend * Will closely monitor (6) Traumatic hematoma of left knee: Code(s): S80.02XA - Contusion of left knee, initial encounter Status: Acute Assessment and Plan: * X-ray of the knee indicates severe anterior swelling possible local hematoma * Continue comfort measures * Will consult PT OT (7) Elevated brain natriuretic peptide (BNP) level: Code(s): R79.89 - Other specified abnormal findings of blood chemistry Status: Acute Assessment and Plan: * [id number] * Patient received Lasix * Chest x-ray indicate pulmonary edema * Echo pending Transfer Discharge Sum: Med Medications Active and Home Medications: Home Medications warfarin 2 mg tablet 1.5 mg PO DAILY 03/12/20 [History Confirmed 06/15/21] amlodipine 2.5 mg PO DAILY 06/15/21 [History Confirmed 06/15/21] hydrochlorothiazide 12.5 mg PO DAILY 06/15/21 [History Confirmed 06/15/21] pravastatin 10 mg PO DAILY 06/15/21 [History Confirmed 06/15/21] propylthiouracil 50 mg PO BID 06/15/21 [History Confirmed 06/15/21] Active Medications Acetaminophen (Acetaminophen 325 Mg Tablet)
--- NOTE | 2021-06-17 21:43 | PM.TDS ---
Transfer Discharge Sum: Prov Provider Date of admission: 06/15/21 13:24 Primary care physician: Jorge A Lewis MD Admitting clinician: Cale Heath MD Attending physician on admission: Camilo Jones Attending physician on discharge: Archie Heath Discharging clinician: Camilo Jones Anticipated date of transfer: 06/17/21 Receiving physician/facility: Dr Spencer DS: Admitting Diagnosis Discharge Date 06/17/2021 Admitting Diagnosis afib with rvr, left knee injury DS: Discharge Diagnosis Discharge Diagnosis (1) Atrial fibrillation with RVR: Code(s): I48.91 - Unspecified atrial fibrillation Status: Acute Assessment and Plan: History of A. fib prescribed warfarin no beta-selina needed for rate control in the past Dr. Sequeira patient kier hand, EGD sent Dr. Sequeira office for interpretation Patient started on Cardizem drip given Cardizem IV push then metoprolol. Patient denies any chest pains or shortness of breath Warfarin on hold supratherapeutic 5.0>3.9>4.6, will monitor daily and resume when appropriate. repeat ekg indicate afib with rvr. Patient will tranfer to [facility] (2) Left knee DJD: Qualifiers: Osteoarthritis type: primary Qualified Code(s): M17.12 - Unilateral primary osteoarthritis, left knee Code(s): M17.12 - Unilateral primary osteoarthritis, left knee Status: Acute Assessment and Plan: Will consult PT OT (3) Electrolyte imbalance: Code(s): E87.8 - Other disorders of electrolyte and fluid balance, not elsewhere classified Status: Acute Assessment and Plan: Resolved Potassium3.7>2.7>3.7 magnesium1.5>2.0secondary with the use of diuretics Will replace with supplements K 40meq and mag 2 g (4) Acute kidney injury: Code(s): N17.9 - Acute kidney failure, unspecified Status: Acute Assessment and Plan: BUN/creatinine 32/1.22>30/1.15>41>2.04 renal function worsened due to use of diuretics. dc diuretic Renal dose medication Avoid nephrotoxic agents (5) Elevated liver function tests: Code(s): R79.89 - Other specified abnormal findings of blood chemistry Status: Acute Assessment and Plan: Secondary to heart failure versus hepatitis versus trauma versus medication Will stop statins for now Total bili 1.7>1.5, AST 195,>153 ALT 170>143, will trend Will closely monitor (6) Traumatic hematoma of left knee: Code(s): S80.02XA - Contusion of left knee, initial encounter Status: Acute Assessment and Plan: X-ray of the knee indicates severe anterior swelling possible local hematoma Continue comfort measures Will consult PT OT (7) Elevated brain natriuretic peptide (BNP) level: Code(s): R79.89 - Other specified abnormal findings of blood chemistry Status: Acute Assessment and Plan: [id number] Patient received Lasix Chest x-ray indicate pulmonary edema Echo pending Transfer Discharge Sum: Med Medications Active and Home Medications: Home Medications warfarin 2 mg tablet 1.5 mg PO DAILY 03/12/20 [History Confirmed 06/15/21] amlodipine 2.5 mg PO DAILY 06/15/21 [History Confirmed 06/15/21] hydrochlorothiazide 12.5 mg PO DAILY 06/15/21 [History Confirmed 06/15/21] pravastatin 10 mg PO DAILY 06/15/21 [History Confirmed 06/15/21] propylthiouracil 50 mg PO BID 06/15/21 [History Confirmed 06/15/21] Active Medications Acetaminophen (Acetaminophen 325 Mg Tablet) 650 mg PO Q6H PRN PRN Reason: Mild Pain (1-3) or Fever Acetaminophen (Acetaminophen 500 Mg Tablet) 1,000 mg PO Q6H PRN PRN Reason: Pain Rated 6 or Greater Cefepime HCl (Maxipime 1 Gm/D5w 50 Ml) 1 gm in 50 mls @ 100 mls/hr IVPB ONCE ONE Stop: 06/17/21 22:10 Lidocaine (Lidocaine 5% Patch) 1 patch TRANSDERM DAILY LILA Lorazepam (Lorazepam Inj (*Crx) 2 Mg/Ml Vial) 0.5 mg IV PUSH Q6H PRN PRN Reason: Anxiety Metoprolol Tartrate (Metoprolol Tartrate 12.5 Mg Tablet) 12.5
[2021-06-17 22:26] LABS: Appearance Urine Clear (Clear); Bilirubin Urine 1+ (Negative); Color Urine Dark Yellow (Yellow); Glucose Urine UA Negative (Negative); Ketones Urine Trace (Negative); Leukocyte Esterase Ur Trace LEU/UL (Negative); Nitrate Urine Negative (Negative); Protein Urine 1+ (Negative); Specific Grav Ur >= 1.030 (1.010-1.020); pH Urine 5.5 (5.0-8.0)
[2021-06-17 22:40] LABS: Add Urine Microscopic? YES; Bacteria Urine 1+ /hpf; Blood Urine Trace-Intact (Negative); RBC Urine 0-2 /hpf (0-2); WBC Urine 0-3 /hpf (0-3)
[2021-06-17 22:59] LABS: SARS-CoV-2 RNA PCR Negative (Negative)
[2021-06-18] VITALS: BP 80/60; PULSE 82; PULSE 93; RESP 18; TEMP 36.4; O2SAT 93
--- NOTE | 2021-06-19 10:15 | PC.NURSE ---
follow up call made, spoke with patient still inpatient at [facility], he reports she isn't doing well, no other information obtained.
== END 2021-06-18 00:06 | disposition short-term general hospital (02) | DRG 309 ==
LOC: CHSED 12:41 → CHS2ND 13:27
PROVIDERS: Nurse Practitioner; Admitting Provider Internal Medicine; Emergency Provider Emergency Medicine; PCP Internal Medicine; Visit Provider Internal Medicine
DX: I48.20 Chronic atrial fibrillation, unspecified (principal); S83.92XA Sprain of unspecified site of left knee, initial encounter; R06.82 Tachypnea, not elsewhere classified; I10 Essential (primary) hypertension; M17.12 Unilateral primary osteoarthritis, left knee; W18.09XA Striking against other object with subsequent fall, initial encounter; Z79.01 Long term (current) use of anticoagulants; Z96.651 Presence of right artificial knee joint; Z96.643 Presence of artificial hip joint, bilateral; Z72.0 Tobacco use; N17.9 Acute kidney failure, unspecified; J81.1 Chronic pulmonary edema; S80.02XA Contusion of left knee, initial encounter; E87.8 Other disorders of electrolyte and fluid balance, not elsewhere classified; I95.9 Hypotension, unspecified; R79.89 Other specified abnormal findings of blood chemistry; Z20.822 Contact with and (suspected) exposure to COVID-19
CPT/HCPCS: 36415; 71045; 73562; 80048; 80053; 81001; 83036; 83605; 83735; 83880; 84484; 85025; 85027; 85610; 87040; 93005; 93306; 93971; 96365; 96366; 99285; A9270; C9113; C9803; J0692; J1940; J2405; J3370; J3475; J3480; J7030; J7040; U0003; U0005

== ENCOUNTER 2021-07-04 16:00 | Inpatient (IN) | payer MEDICARE, MEDICAID, SELFPAY ==
[2021-07-04 16:15] VITALS: BP 117/78; PULSE 103; RESP 18; TEMP 37.5; O2SAT 98; BMI 18.9
[2021-07-04] MEDS: APIXABAN 2.5 MG TABLET PO (18:39)
--- NOTE | 2021-07-04 19:48 | PC.NURSE ---
1630 70 yo female patient admitted from [facility] for skilled swing bed for weakness and rehab. Patient continues to have problems with left knee from a fall she suffered a couple of months ago. Patient transferred to [facility] with resp difficulties and Afib with RVR. While at [facility] it was found that patient has lung cancer. Patient here for strengthening. Patient is alert and oriented x4. Able to verbalize needs. No c/o upon admission. Patient instructed on room, call light/television, and hospital routines. Patient states understanding.
[2021-07-04 21:05] VITALS: PULSE 92; TEMP 37.2
[2021-07-04] MEDS: HYDROcodone/acetaminophen (*CRX) 5-325 MG TABLET 1 TAB PO (21:06)
[2021-07-04 21:07] VITALS: PULSE 92
[2021-07-04] MEDS: METOPROLOL TARTRATE 12.5 MG TABLET PO (21:07)
--- NOTE | 2021-07-04 22:08 | PC.NURSE ---
Lidocaine patch to left knee and mid back removed.
--- NOTE | 2021-07-04 22:13 | PC.NURSE ---
Found duoderm dressing on coccyx. Removed it, patient states it has been there for approximately 4-5 days. Area is reddened but does not appear open. Photos taken and uploaded. New thin duoderm applied for skin protection.
[2021-07-04 23:57] VITALS: BP 108/86; PULSE 82; RESP 20; TEMP 37.1; O2SAT 94
[2021-07-05] MEDS: LEVOTHYROXINE SODIUM 25 MCG TABLET PO (05:47)
[2021-07-05 08:00] VITALS: BP 118/91; PULSE 96; RESP 16; TEMP 36.8; O2SAT 93
[2021-07-05] MEDS: LIDOCAINE 5% PATCH 2 PATCH TOPICAL (08:29)
[2021-07-05 08:32] VITALS: PULSE 100
[2021-07-05] MEDS: CHOLECALCIFEROL 1,000 UNITS TABLET 1000 UNITS PO (08:32)
[2021-07-05] MEDS: DIGOXIN TAB 125 MCG TABLET PO (08:32)
[2021-07-05] MEDS: APIXABAN 2.5 MG TABLET PO ×2 (08:32→16:57)
[2021-07-05] MEDS: PRAVASTATIN SODIUM 10 MG TABLET PO (08:33)
[2021-07-05] MEDS: PANTOPRAZOLE 40 MG TABLET PO (08:33)
[2021-07-05 08:34] VITALS: PULSE 100
[2021-07-05] MEDS: METOPROLOL TARTRATE 12.5 MG TABLET PO ×2 (08:34→20:42)
--- NOTE | 2021-07-05 12:45 | PM.IMHP ---
H&P: HPI History of Present Illness Date/Time: 07/05/21 12:45 This is a 70 year old female that was transferred from our facility to [facility] in [place] for a traumatic knee hematoma and was found to have a lung mass while at outlaying facility. Patient has a past medical history of A. fib, hypertension and left leg DJD. According to the Patient was transferred back as a swing patient for physical therapy. Patient will follow up as a outpatient once she is discharge from here so she is able to get her lung cancer cared for. She is in need for a outpatient pet scan . Patient initial admission prior to going to [facility] was for a swollen knee with discoloration from ankle to her mid thigh that was caused per patient from a fall. Patient while admitted went into a fib with RVR and was placed on a cardizem drip. Patient had dopplers prior to being transferred which ruled out any DVTS there were no fracture according o the xrays or ct as well. At this time patient is stable and will begin with physical therapy. Patient currently denies any shortness of breath or constipation no chest pain or palpation . Left leg still remains swollen not as much as it was prior to discharge according to patient she always has a little swelling prior to injury. Chief Complaint: Rehab, weakness and knee pain Review of Systems Review of Systems: Leg pain knee hematoma , Weakness All systems reviewed & are unremarkable except as noted in HPI and below PMFSH Past Medical History Medical History Afib Hypertension Left knee DJD Surgical History Surgical History History of total left hip arthroplasty History of total right hip arthroplasty History of total right knee replacement (TKR) Social History Social History Smoking packs per day: 1 Smoking cigarettes per day: 20.0 Years smoked: 60 Smoking pack-years: 60.00 Smoking status: Former smoker Tobacco type: cigarettes Alcohol intake: current Drinks per week: 21 Substance use: former Substance use type: marijuana Gender identity (if verbalized by the patient): Female Spiritual care concerns: No Meds Home Medications and Allergies Home Medications Medication Instructions Recorded Confirmed Type acetaminophen [Acetaminophen Extra 500 mg PO Q4-5H PRN 07/04/21 07/04/21 History Strength] apixaban [Eliquis] 2.5 mg PO BID 07/04/21 07/04/21 History cholecalciferol (vitamin D3) 25 mcg PO DAILY 07/04/21 07/04/21 History digoxin 125 mcg PO DAILY 07/04/21 07/04/21 History hydrocodone-acetaminophen [Redrock] 1 tablet PO Q6H PRN 07/04/21 07/04/21 History ipratropium-albuterol [DuoNeb] 3 ml INHALATION Q4H PRN 07/04/21 07/04/21 History levothyroxine 25 mcg PO DAILY 07/04/21 07/04/21 History lidocaine [Blue-Emu Lidocaine 2 patch TOPICAL DAILY 07/04/21 07/04/21 History Patch] metoprolol tartrate 12.5 mg PO BID 07/04/21 07/04/21 History pantoprazole 40 mg PO QAM 07/04/21 07/04/21 History pravastatin 10 mg PO DAILY 07/04/21 07/04/21 History Allergies Allergy/AdvReac Type Severity Reaction Status Date / Time morphine Allergy Unknown Verified 06/15/21 13:00 NSAIDS (Non-Steroidal Allergy Unknown Verified 07/04/21 17:10 Anti-Inflamma Vital Signs Vital Signs - 24 hr 07/04/21 16:15 07/04/21 21:05 07/04/21 21:07 Temperature 99.5 F 98.9 F Pulse Rate 103 H 92 92 Respiratory Rate 18 Blood Pressure 117/78 Pulse Oximetry 98 07/04/21 23:57 07/05/21 08:00 07/05/21 08:32 Temperature 98.8 F 98.2 F Pulse Rate 82 96 100 Respiratory Rate 20 16 Blood Pressure 108/86 118/91 H Pulse Oximetry 94 93 07/05/21 08:34 Temperature Pulse Rate 100 Respiratory Rate Blood Pressure Pulse Oximetry Exam Const: General: no acute distress HENMT: General nose exam: Normal nares present
[2021-07-05 16:00] VITALS: BP 134/81; PULSE 91; RESP 16; TEMP 36.3; O2SAT 98
[2021-07-05] MEDS: HYDROcodone/acetaminophen (*CRX) 5-325 MG TABLET 1 TAB PO (20:08)
[2021-07-05 20:42] VITALS: PULSE 85
[2021-07-05] MEDS: DOCUSATE SODIUM 100 MG CAPSULE PO (20:42)
[2021-07-05 23:33] VITALS: BP 145/82; PULSE 87; RESP 20; TEMP 36.2; O2SAT 93
[2021-07-06] MEDS: LEVOTHYROXINE SODIUM 25 MCG TABLET PO (06:10)
[2021-07-06] MEDS: HYDROcodone/acetaminophen (*CRX) 5-325 MG TABLET 1 TAB PO ×3 (06:11→21:03)
[2021-07-06 08:00] VITALS: BP 140/88; PULSE 105; RESP 18; TEMP 36.6; O2SAT 91
[2021-07-06] MEDS: LIDOCAINE 5% PATCH 2 PATCH TOPICAL (08:16)
[2021-07-06] MEDS: CHOLECALCIFEROL 1,000 UNITS TABLET 1000 UNITS PO (08:19)
[2021-07-06 08:20] VITALS: PULSE 93
[2021-07-06] MEDS: METOPROLOL TARTRATE 12.5 MG TABLET PO ×2 (08:20→21:02)
[2021-07-06] MEDS: APIXABAN 2.5 MG TABLET PO ×2 (08:20→17:14)
[2021-07-06] MEDS: DIGOXIN TAB 125 MCG TABLET PO (08:20)
[2021-07-06] MEDS: PANTOPRAZOLE 40 MG TABLET PO (08:20)
[2021-07-06] MEDS: DOCUSATE SODIUM 100 MG CAPSULE PO ×2 (08:20→21:02)
[2021-07-06] MEDS: PRAVASTATIN SODIUM 10 MG TABLET PO (08:21)
[2021-07-06 16:00] VITALS: BP 131/74; PULSE 99; RESP 16; TEMP 36.4; O2SAT 93
[2021-07-06 21:02] VITALS: PULSE 94
[2021-07-07] VITALS: BP 159/101; PULSE 92; RESP 20; TEMP 36.6; O2SAT 92
[2021-07-07] MEDS: HYDROcodone/acetaminophen (*CRX) 5-325 MG TABLET 1 TAB PO ×4 (03:18→21:05)
[2021-07-07 04:51] LABS: Hematocrit 35.4 % (35.0-42.0); Hemoglobin 10.9 g/dL (11.7-13.8); Mean Corpuscular HGB Conc 30.8 g/dL (32.0-36.0); Mean Corpuscular Hemoglobin 30.5 pg (27.0-31.0); Mean Corpuscular Volume 99.2 fL (78.0-102.0); Mean Platelet Volume 10.5 fl (9.2-11.8); Platelet Count Result 262 K/mm3 (150-420); Red Blood Count 3.57 M/mm3 (4.20-5.40); Red Cell Distribution Width 14.8 % (11.6-14.4); White Blood Count 7.4 K/mm3 (4.8-10.8)
[2021-07-07 05:02] LABS: Anion Gap 9 mmol/L (8-16); Blood Urea Nitrogen 17 mg/dL (7-18); Calcium 7.8 mg/dL (8.5-10.1); Carbon Dioxide 25 mmol/L (21-32); Chloride 97 mmol/L (98-108); Estimated CRCL calculation 43 ml/min; Estimated Glomerular Filt Rate > 60; Glucose 96 mg/dL (70-99); Osmolality Calculated 273 mOsm/kg (285-295); Potassium 4.2 mmol/L (3.5-5.1); Sodium 131 mmol/L (136-145)
[2021-07-07] MEDS: LEVOTHYROXINE SODIUM 25 MCG TABLET PO (06:29)
[2021-07-07 08:40] VITALS: BP 102/80; PULSE 80; PULSE 86; RESP 18; TEMP 36.9; O2SAT 94
[2021-07-07] MEDS: PANTOPRAZOLE 40 MG TABLET PO (08:40)
[2021-07-07] MEDS: METOPROLOL TARTRATE 12.5 MG TABLET PO ×2 (08:40→21:08)
[2021-07-07] MEDS: APIXABAN 2.5 MG TABLET PO ×2 (08:40→17:31)
[2021-07-07] MEDS: PRAVASTATIN SODIUM 10 MG TABLET PO (08:40)
[2021-07-07] MEDS: DOCUSATE SODIUM 100 MG CAPSULE PO ×2 (08:40→21:05)
[2021-07-07] MEDS: CHOLECALCIFEROL 1,000 UNITS TABLET 1000 UNITS PO (08:40)
[2021-07-07] MEDS: DIGOXIN TAB 125 MCG TABLET PO (08:40)
[2021-07-07] MEDS: LIDOCAINE 5% PATCH 2 PATCH TOPICAL (08:42)
--- NOTE | 2021-07-07 15:04 | PCOTNOTE ---
On 07/07/21, the student, [Claudia Raza ], provided care and completed [facility] documentation on this patient. I have reviewed the student's documentation and agree with the findings.
[2021-07-07 16:35] VITALS: BP 125/92; PULSE 92; RESP 18; TEMP 36.6; O2SAT 93
[2021-07-07 21:08] VITALS: PULSE 78
[2021-07-08] VITALS (7 sets, daily range): BP systolic 124–130; BP diastolic 87–92; PULSE 80–93; RESP 18–20; TEMP 36.2–36.9; O2SAT 90–97
[2021-07-08] MEDS: ACETAMINOPHEN 500 MG TABLET PO (02:53)
[2021-07-08] MEDS: LEVOTHYROXINE SODIUM 25 MCG TABLET PO (06:15)
[2021-07-08] MEDS: HYDROcodone/acetaminophen (*CRX) 5-325 MG TABLET 1 TAB PO ×3 (06:15→18:09)
--- NOTE | 2021-07-08 08:07 | PM.EVENT ---
Event Note Event Note Event Note: Reviewed patient urine which is dark yellow positive for ketones, bacteria will start patient on Bactrim DS for UTI
[2021-07-08] MEDS: LIDOCAINE 5% PATCH 2 PATCH TOPICAL (08:55)
[2021-07-08] MEDS: PANTOPRAZOLE 40 MG TABLET PO (08:56)
[2021-07-08] MEDS: PRAVASTATIN SODIUM 10 MG TABLET PO (08:56)
[2021-07-08] MEDS: METOPROLOL TARTRATE 12.5 MG TABLET PO ×2 (08:56→21:06)
[2021-07-08] MEDS: DOCUSATE SODIUM 100 MG CAPSULE PO ×2 (08:56→21:06)
[2021-07-08] MEDS: APIXABAN 2.5 MG TABLET PO ×2 (08:57→17:05)
[2021-07-08] MEDS: DIGOXIN TAB 125 MCG TABLET PO (08:57)
[2021-07-08] MEDS: CHOLECALCIFEROL 1,000 UNITS TABLET 1000 UNITS PO (08:57)
[2021-07-08] MEDS: traZODone HCL 50 MG TABLET PO (21:06)
--- NOTE | 2021-07-09 01:59 | PC.NURSE ---
Pt had incontinent void and called to have her depend changed and for her to be cleaned. Pt requested a female nurse, so this database report writer asked the charge nurse Queenie Bal RN. if she could assist the pt. Pt's depend was changed and cleaned up by Queenie. Pt was raised more towards the HOB and a pillow placed under pt's heels to prevent any sores from developing. Bed was then placed in the lowest position and the call light placed within reach.
[2021-07-09] MEDS: LEVOTHYROXINE SODIUM 25 MCG TABLET PO (06:00)
[2021-07-09] MEDS: HYDROcodone/acetaminophen (*CRX) 5-325 MG TABLET 1 TAB PO ×2 (06:00→16:01)
--- NOTE | 2021-07-09 06:33 | PC.NURSE ---
Pt was transferred from the bed to the commode with walker, gait belt, and 1 assist. Pt tolerated transfer well. Pt had an incontinent void, so Queenie Bal RN. came and helped Destiny clean herself up and put on a fresh depend. Pt voided a very scarce amount of dark, yellow urine. Oscar was then transferred from commode to chair with 2 assist, walker, and gait belt. Destiny then brushed her teeth independently and was reclined in the chair when she was finished w/ her oral care. Call light placed within reach.
[2021-07-09 08:00] VITALS: BP 132/91; PULSE 77; RESP 16; TEMP 36.6; O2SAT 95
[2021-07-09] MEDS: LIDOCAINE 5% PATCH 2 PATCH TOPICAL (08:49)
[2021-07-09 08:50] VITALS: PULSE 96
[2021-07-09] MEDS: PANTOPRAZOLE 40 MG TABLET PO (08:50)
[2021-07-09] MEDS: DIGOXIN TAB 125 MCG TABLET PO (08:50)
[2021-07-09] MEDS: CHOLECALCIFEROL 1,000 UNITS TABLET 1000 UNITS PO (08:50)
[2021-07-09 08:52] VITALS: PULSE 96
[2021-07-09] MEDS: METOPROLOL TARTRATE 12.5 MG TABLET PO ×2 (08:52→21:09)
[2021-07-09] MEDS: DOCUSATE SODIUM 100 MG CAPSULE PO ×2 (08:52→21:08)
[2021-07-09] MEDS: PRAVASTATIN SODIUM 10 MG TABLET PO (08:52)
[2021-07-09] MEDS: APIXABAN 2.5 MG TABLET PO ×2 (08:52→16:02)
--- NOTE | 2021-07-09 13:21 | PCOTNOTE ---
On 07/09/21, the student, [Claudia Raza ], provided care and completed [facility] documentation on this patient. I have reviewed the student's documentation and agree with the findings.
[2021-07-09 16:00] VITALS: BP 125/108; PULSE 90; RESP 18; TEMP 36.2; O2SAT 97
[2021-07-09] MEDS: traZODone HCL 50 MG TABLET PO (21:07)
[2021-07-09 21:09] VITALS: PULSE 84
[2021-07-10] VITALS: BP 123/89; PULSE 92; RESP 18; TEMP 36.2; O2SAT 87
[2021-07-10] MEDS: LEVOTHYROXINE SODIUM 25 MCG TABLET PO (06:08)
[2021-07-10] MEDS: HYDROcodone/acetaminophen (*CRX) 5-325 MG TABLET 1 TAB PO ×3 (06:09→22:38)
[2021-07-10 07:45] VITALS: BP 130/85; PULSE 95; RESP 20; TEMP 36.3; O2SAT 100
[2021-07-10] MEDS: LIDOCAINE 5% PATCH 2 PATCH TOPICAL (08:20)
[2021-07-10 08:22] VITALS: PULSE 95
[2021-07-10] MEDS: DIGOXIN TAB 125 MCG TABLET PO (08:22)
[2021-07-10] MEDS: APIXABAN 2.5 MG TABLET PO ×2 (08:23→18:05)
[2021-07-10] MEDS: DOCUSATE SODIUM 100 MG CAPSULE PO ×2 (08:23→20:39)
[2021-07-10] MEDS: CHOLECALCIFEROL 1,000 UNITS TABLET 1000 UNITS PO (08:23)
[2021-07-10 08:24] VITALS: PULSE 95
[2021-07-10] MEDS: PANTOPRAZOLE 40 MG TABLET PO (08:24)
[2021-07-10] MEDS: METOPROLOL TARTRATE 12.5 MG TABLET PO ×2 (08:24→22:38)
[2021-07-10] MEDS: PRAVASTATIN SODIUM 10 MG TABLET PO (08:24)
--- NOTE | 2021-07-10 10:58 | PC.NURSE ---
off oxygen at this time, worked with therapy on room air, noted lowest level to be 89%, 95% at rest
[2021-07-10 16:00] VITALS: BP 131/80; PULSE 79; RESP 16; TEMP 36.2; O2SAT 93
[2021-07-10] MEDS: ACETAMINOPHEN 500 MG TABLET PO (18:12)
[2021-07-10 22:38] VITALS: PULSE 84
[2021-07-11] VITALS (11 sets, daily range): BP systolic 135–145; BP diastolic 95–99; PULSE 74–105; RESP 16–20; TEMP 35.9–36.6; O2SAT 87–96
[2021-07-11] MEDS: LEVOTHYROXINE SODIUM 25 MCG TABLET PO (06:09)
[2021-07-11] MEDS: HYDROcodone/acetaminophen (*CRX) 5-325 MG TABLET 1 TAB PO ×3 (06:09→21:15)
--- NOTE | 2021-07-11 07:31 | HOMEO2EVAL ---
Evaluation was performed at [facility] [place] [facility] Oxygen Evaluation RC: Home Oxygen (O2) Evaluation Start: 07/11/21 09:00 Freq: ONCE Status: Active Protocol: RPE Activity Type Activity Date Activity User E-Sign Co-Sign Detail Recorded Client Recorded Date Recorded By Document 07/11/21 07:00 DAVID [id number] 07/11/21 07:31 SJB Document 07/11/21 07:03 SJB [id number] 07/11/21 07:31 SJB Document 07/11/21 07:08 SJB [id number] 07/11/21 07:31 SJB 07/11/21 07/11/21 07/11/21 07:00 07:03 07:08 Home O2 Evaluation Test Phase Resting Exercise Exercise Oxygen Delivery Room Air Room Air Nasal Cannula Oxygen Flow Rate (L/min) 1 Pulse Oximetry (90-100 %) 94 87 L 92 Pulse Rate (60-100 beats/min) 76 88 89 Activity Tolerance Fair Fair Rating of Perceived Dyspnea (PD) +2 Mild, Some +2 Mild, Some Difficulty, Difficulty, Noticeable to Noticeable to the Observer the Observer Rate of Perceived Exertion (PE) 13 Somewhat 13 Somewhat Hard Hard Ambulation Distance (feet) 35 35 Ambulation Distance (meters) 10.66 10.66 Home Oxygen Evaluation Comments Will begin walk Walked approx Finished walk now on r/a 35 ft on r/a, on 1 lpm with pushing Sp02 dropped to Sp02 at 92%. wheelchair. 87%. Will Pt needed much start on 1 lpm encouragement oxygen. to walk and to do PLB. She walked a total of 70 ft. Treatment Charges O2 Evaluation - Inpatient
[2021-07-11] MEDS: LIDOCAINE 5% PATCH 2 PATCH TOPICAL (08:28)
[2021-07-11] MEDS: PANTOPRAZOLE 40 MG TABLET PO (08:29)
[2021-07-11] MEDS: CHOLECALCIFEROL 1,000 UNITS TABLET 1000 UNITS PO (08:29)
[2021-07-11] MEDS: APIXABAN 2.5 MG TABLET PO ×2 (08:29→17:55)
[2021-07-11] MEDS: DIGOXIN TAB 125 MCG TABLET PO (08:29)
[2021-07-11] MEDS: PRAVASTATIN SODIUM 10 MG TABLET PO (08:30)
[2021-07-11] MEDS: DOCUSATE SODIUM 100 MG CAPSULE PO ×2 (08:30→21:14)
[2021-07-11] MEDS: METOPROLOL TARTRATE 12.5 MG TABLET PO ×2 (08:30→21:07)
--- NOTE | 2021-07-11 11:19 | PM.EVENT ---
Event Note Event Note Event Note: Home two evaluation indicates that patient requires 1 L nasal cannula with activities. Patient will require portable oxygen concentrator due to history of rheumatoid arthritis and her inability to navigate her hands.
--- NOTE | 2021-07-11 17:55 | PC.NURSE ---
Patient called for nurse and asked for a bandaid. Patient had cut the tip of her R index finger on the plastic container that came on her dinner tray. Quantitative Analyst cleansed the minor cut and applied a bandaid.
[2021-07-12] VITALS: BP 145/99; PULSE 74; RESP 20; TEMP 36.6; O2SAT 97
[2021-07-12 05:09] LABS: Hematocrit 36.5 % (35.0-42.0); Hemoglobin 11.7 g/dL (11.7-13.8); Mean Corpuscular HGB Conc 32.1 g/dL (32.0-36.0); Mean Corpuscular Hemoglobin 30.1 pg (27.0-31.0); Mean Corpuscular Volume 93.8 fL (78.0-102.0); Mean Platelet Volume 10.6 fl (9.2-11.8); Platelet Count Result 314 K/mm3 (150-420); Red Blood Count 3.89 M/mm3 (4.20-5.40); Red Cell Distribution Width 14.8 % (11.6-14.4); White Blood Count 8.6 K/mm3 (4.8-10.8)
[2021-07-12 05:21] LABS: Anion Gap 8 mmol/L (8-16); Blood Urea Nitrogen 15 mg/dL (7-18); Calcium 8.3 mg/dL (8.5-10.1); Carbon Dioxide 28 mmol/L (21-32); Chloride 97 mmol/L (98-108); Estimated CRCL calculation 42 ml/min; Estimated Glomerular Filt Rate > 60; Glucose 98 mg/dL (70-99); Osmolality Calculated 276 mOsm/kg (285-295); Potassium 4.6 mmol/L (3.5-5.1); Sodium 133 mmol/L (136-145)
[2021-07-12] MEDS: HYDROcodone/acetaminophen (*CRX) 5-325 MG TABLET 1 TAB PO (06:28)
[2021-07-12] MEDS: LEVOTHYROXINE SODIUM 25 MCG TABLET PO (06:28)
[2021-07-12 08:00] VITALS: BP 136/10; PULSE 79; RESP 14; TEMP 36.4; O2SAT 95
--- NOTE | 2021-07-12 08:56 | PM.DS ---
DS: Admitting Diagnosis Discharge Date 07/12/2021 Admitting Diagnosis Rehab DS: Discharge Diagnosis Discharge Diagnosis (1) Atrial fibrillation with RVR: Code(s): I48.91 - Unspecified atrial fibrillation Status: Acute Assessment and Plan: Continue -- Eliquis -- Digoxin -- metoprolol --pt to follow up with cardiology Dr. Sequeira on Oct 30@1130am in [place] (2) Elevated brain natriuretic peptide (BNP) level: Code(s): R79.89 - Other specified abnormal findings of blood chemistry Status: Acute Assessment and Plan: stable at this time (3) Traumatic hematoma of left knee: Code(s): S80.02XA - Contusion of left knee, initial encounter Status: Acute Assessment and Plan: -- ok to remain on Eliquis (4) Acute kidney injury: Code(s): N17.9 - Acute kidney failure, unspecified Status: Acute Assessment and Plan: Resolved (5) Lung cancer: Code(s): C34.90 - Malignant neoplasm of unspecified part of unspecified bronchus or lung Status: Acute Assessment and Plan: --- Out pt pet scan needed with be obtained once discharged from swing --- Call and schedule appointment with Dr. Allen [facility]; he will schedule you a tele health (6) Needs smoking cessation education: Code(s): F17.200 - Nicotine dependence, unspecified, uncomplicated Status: Acute Assessment and Plan: lung cancer patient to follow up as a outpatient [facility] DS: Summary Hospital Course Hospital Course: This is a 70-year-old female that was transferred from [facility] in [place] status post traumatic knee hematoma. As inpatient there was a lung mass identified on imaging. Patient has completed our swing bed program and will discharge home with her and follow-up with her web content specialist and oncologist. She will discharge home with oxygen supplement, nebulizer, pain medication, antianxiety medication, and inhalers. On discharge patient able to ambulate 100 feet x 1 with contact-guard assist. The patient denies , CP, palpitation, extremity numbness, lightheadedness, dizziness, constipation, diarrhea, chills, or fever. Patient is anxious to discharge home. Time Spent with Patient Time attestation: Total time spent providing and/or coordinating discharge services: Exam Narrative: GENERAL: Frail elderly female, in no apparent distress. HEAD: normocephalic, atraumatic. EYES: PERRL. Sclera clear/white. Vision is grossly intact. EARS: External ears normal, auditory canals clear and without drainage, TMs normal without perforation. Hearing grossly intact. NOSE: External nose normal with no obvious nasal discharge, nares without redness, no rhinorrhea. THROAT: Mucous membranes moist, posterior pharynx clear. NECK: Neck supple, non-tender without lymphadenopathy, masses or thyromegaly. CARDIOVASCULAR: Regular rate and rhythm without murmurs, gallops, or rubs. RESPIRATORY: Clear to auscultation. Breath sounds equal bilaterally. No wheezes, rales, or rhonchi. GASTROINTESTINAL: Abdomen soft, non-tender, nondistended. Bowel sounds are active. No hepato-splenomegaly, or palpable masses. No guarding. SKIN: warm, intact with no suspicious lesions or rash, good texture and turgor. NEURO: awake, alert, and oriented to person, place and time. There were no obvious focal neurologic abnormalities. Steady gait EXTREMITIES: Normal range of motion. No edema. No calf tenderness. Negative Homans sign bilaterally. BACK: Nontender without deformity or crepitance. No flank tenderness. DS: Data Data Completed and Pending Labs on day of discharge: Labs from last 24 hours 07/12/21 07/12/21 04:59 04:59 WBC 8.6 RBC 3.89 L Hgb 11.7 Hct 36.5 MCV 93.8 MCH 30.1 MCHC 32.1 RDW 14.8 H Plt Count 314 MPV 10.6 Sodium 133 L Potassium 4.6 Chloride 97 L Carbon Dioxide 28 Anion Gap 8 BUN 15 Creatinine 0.
[2021-07-12] MEDS: LIDOCAINE 5% PATCH 2 PATCH TOPICAL (08:59)
[2021-07-12 09:00] VITALS: PULSE 91
[2021-07-12] MEDS: METOPROLOL TARTRATE 12.5 MG TABLET PO (09:00)
[2021-07-12] MEDS: DIGOXIN TAB 125 MCG TABLET PO (09:00)
[2021-07-12] MEDS: PANTOPRAZOLE 40 MG TABLET PO (09:00)
[2021-07-12] MEDS: CHOLECALCIFEROL 1,000 UNITS TABLET 1000 UNITS PO (09:00)
[2021-07-12] MEDS: PRAVASTATIN SODIUM 10 MG TABLET PO (09:01)
[2021-07-12] MEDS: APIXABAN 2.5 MG TABLET PO (09:01)
[2021-07-12] MEDS: DOCUSATE SODIUM 100 MG CAPSULE PO (09:01)
--- NOTE | 2021-07-12 14:25 | PC.NURSE ---
Pt discharged to home. VSS, discharge instructions given to pt. Medications reviewed. Follow up doctor appointments reviewed with pt. Pt taken to family car via WC by RN.
--- NOTE | 2021-07-15 09:37 | PC.NURSE ---
Spouse states they received and understood the discharge instructions. Spouse has no other comments.
== END 2021-07-12 13:15 | disposition home or self-care (01) | DRG 949 ==
PROVIDERS: Nurse Practitioner; Nurse Practitioner Family; Admitting Provider Internal Medicine; PCP Internal Medicine; Visit Provider Internal Medicine
DX: S80.02XD Contusion of left knee, subsequent encounter (principal); I48.20 Chronic atrial fibrillation, unspecified; N17.9 Acute kidney failure, unspecified; C34.90 Malignant neoplasm of unspecified part of unspecified bronchus or lung; I10 Essential (primary) hypertension; R79.89 Other specified abnormal findings of blood chemistry; M17.12 Unilateral primary osteoarthritis, left knee; Z96.643 Presence of artificial hip joint, bilateral; Z96.651 Presence of right artificial knee joint; Z87.891 Personal history of nicotine dependence
CPT/HCPCS: 36415; 80048; 85027; 94618; 97110; 97161; 97165; 97530; 97535; A9270

== ENCOUNTER 2021-07-24 08:43 | Outpatient (CLI) | payer MEDICARE, MEDICAID, SELFPAY ==
--- NOTE | ~2021-07-24 | PE_ITS ---
EXAMINATION: PET skull to mid thigh DATE: 07/24/2021 11:40 INDICATION: Non-small cell carcinoma of the lung. TECHNIQUE: Blood glucose level was 89 mg/dL. 9.392 mCi of 18-fluorodeoxyglucose (18-FDG) was administ ered i.v. Low dose computed tomography (CT) images were acquired from the base of the brain to the pr oximal thighs for attenuation correction and anatomic localization. Positron emission tomography (PET ) images were acquired in the same distribution beginning 51 minutes after injection. Images includin g fused PET/CT images were reconstructed in axial, coronal, and sagittal planes. Automated exposure c ontrol technique was employed. The dose-length product was 295.58mGy-cm. COMPARISON: None FINDINGS: Head/neck: There is symmetric increased activity in the oral and nasal cavities, palatine tonsils, parotid gland s, laryngeal muscles and ocular muscles without CT correlate, likely physiologic. No pathologically e nlarged cervical lymphadenopathy or suspicious foci of increased FDG uptake in the visualized head or neck. Chest: Moderate emphysema. FDG avid bilobed mass at the right apex measuring 3.5 x 2.5 cm with maximal SUV o f 6.4. Bulky FDG avid mediastinal lymphadenopathy with approximately 5.0 x 3.8 x 6.1 cm right paratra cheal mass with marked peripheral FDG uptake with maximal SUV of 9.1 and central photopenic region li tasha representing central necrosis. Multiple additional smaller FDG avid lymph nodes in the prevascul ar space and right supraclavicular region. These are difficult to accurately measure in the absence o f intravenous contrast. The right supraclavicular lymph node measures approximately 2.2 cm diameter w ith maximal SUV of 10.8. There are groundglass opacities in the dependent lower lobes as well as the perihilar right upper lobe which are without associated FDG uptake with differential including atelec tasis, mild pulmonary edema or less likely pneumonia. Cardiomegaly. Atherosclerotic coronary artery c alcific location. Small pericardial effusion. Aortic valve calcification. Normal caliber thoracic aor ta. Abdomen/pelvis/proximal thighs: Physiologic renal accumulation and excretion of FDG activity in the kidneys, bladder and along portio ns of ureters. Normal degree and heterogenous pattern of increased uptake throughout the liver withou t radiologic correlate or dominant FDG avid lesion. The gallbladder, pancreas, spleen and bilateral a drenal glands are normal. Mild uptake scattered throughout the bowels without radiologic correlate, a lso likely physiologic. There are bilateral total hip arthroplasties, streak artifact from which obsc ures significant portions of the central pelvis. 2 cm coarsely calcified mass in the left hemipelvis likely representing a degenerated uterine fibroid. Posterior to the bladder there is moderate increas ed FDG uptake in the region of soft tissue density along the anterior margin of the stool distended r ectum. The margins of the uterus, bladder, ovaries and bowels are unable to be distinguished due to c ombination of lack of intravenous contrast, posterior fat in the pelvis and streak artifact related t o the arthroplasties. 9 mm FDG avid left external iliac chain lymph node with maximal SUV of 4.0. Musculoskeletal: Mild thoracic kyphosis with chronic-appearing anterior wedging of several mid thoracic vertebral bodi es most severe at T7 where there is 60% anterior vertebral body height loss. FDG avid lesion with max imal SUV of 2.8 in the T12 vertebral body with subtle corresponding sclerosis. No other suspicious ly tic, blastic or FDG avid bone lesions. IMPRESSION: 1. Moderate emphysema with 3.5 x 2.5 cm FDG avid right upper lobe mass consistent with provided histo ry of non-small cell lung carcinoma. 2. Enlarged and probably FDG avid mediastinal and right supraclavicular lymphadenopathy consistent wi th metastatic disease. 3. FDG avid g[place]
[2021-07-24 09:22] LABS: Glucose Point of Care 89 mg/dl (65-105)
== END 2021-07-24 08:44 | disposition home or self-care (01) ==
LOC: ANHIMG 08:52
PROVIDERS: PCP Internal Medicine
DX: C34.11 Malignant neoplasm of upper lobe, right bronchus or lung (principal); D25.9 Leiomyoma of uterus, unspecified; I51.7 Cardiomegaly; I31.3 Pericardial effusion (noninflammatory); J43.9 Emphysema, unspecified
CPT/HCPCS: 78815; A9552

== ENCOUNTER 2021-09-30 14:43 | Emergency (ER) | payer MEDICARE, MEDICAID, SELFPAY ==
[2021-09-30] VITALS (10 sets, daily range): BP systolic 71–92; BP diastolic 54–80; PULSE 61–127; RESP 16–24; TEMP 36.1–36.7; O2SAT 90–97
--- NOTE | ~2021-09-30 | XR_ITS ---
EXAMINATION: XR chest 1V portable Exam Date/Time: 09/30/2021 15:12 CDT HISTORY: dyspnea, weakness Comparison: 06/15/2021. RESULT: Lines, tubes, and devices: None. Lungs and pleura: Coarse and fine interstitial opacities diffusely, more prominent in today's exam. Ill-defined focal areas of patchy opacities bilaterally, new. Known right upper lobe mass not well se en radiographically. Cardiomediastinal silhouette: Stable cardiomediastinal silhouette. Other: No acute osseous or upper abdominal finding. IMPRESSION: Pulmonary findings may represent multifocal pneumonia or mild edema, overlying chronic senescent and interstitial change. Reviewed, dictated and finalized at location K.
--- NOTE | 2021-09-30 14:58 | ECG_ITS ---
Measurements Intervals [place] Rate: 120 P: NC: 0 QRS: -35 QRSD: 88 T: 120 QT: 316 QTc: 447 Interpretive Statements ATRIAL FIBRILLATION WITH RAPID VENTRICULAR RESPONSE LEFT AXIS DEVIATION [QRS AXIS < -30] LOW QRS VOLTAGE IN EXTREMITY LEADS [QRS DEFLECTION < 0.5 mV IN LIMB LEADS] POSSIBLE ANTERIOR MYOCARDIAL INFARCTION , PROBABLY OLD [30 ms Q WAVE IN V3/V4, OR R < 0.2 mV IN V4] MODERATE T-WAVE ABNORMALITY, CONSIDER LATERAL ISCHEMIA [-0.1+ mV T-WAVE IN I/aVL/V5/V6] COMPARED TO ECG 06/17/2021 19:10:10 LEFT-AXIS DEVIATION NOW PRESENT Electronically Signed On 10-01-2021 10:00:54 CDT by Wilmar Khan M.D.
--- NOTE | 2021-09-30 15:07 | ED.GENADULT ---
HPI - General Adult General Chief complaint: Weakness Stated complaint: AMB Time Seen by Provider: 09/30/21 15:07 History of Present Illness HPI narrative: the patient is a 70-year-old woman with multiple comorbidities including lung cancer that has been treated with radiation therapy, severe bilateral lower extremity edema, with weeping skin wounds from the edema, with bilateral lower extremity cellulitis, CHF, anemia, acute kidney injury, hypertension, hyperlipidemia, atrial fibrillation, initially on warfarin but now on Eliquis but now back on warfarin since she does not have the Eliquis prescription yet. She is vaccinated against COVID-19, including the booster dose. She is an ex-smoker for the past 6 months. For the last 3-4 days, the patient has had generalized weakness, with decreased oral intake, especially today. EMS was notified. On arrival, the blood pressure was 78 systolic with a heart rate atrial fibrillation 120-130. Oxygen saturations in the low 90s. Glucose 112. Oxygen was administered, 400 cc IV fluids were given through an IV and she was transferred here for further management. She reports generalized weakness but no complaints of chest pain or abdominal pain or nausea vomiting or fevers or chills with diaphoresis or cough or rhinorrhea or nasal congestion. No urinary symptoms. Related Data Home Medications Medication Instructions Recorded Confirmed acetaminophen 500 mg tablet 500 mg PO Q4-5H PRN Pain (Scale 07/04/21 09/30/21 (Acetaminophen Extra Strength) Score 1-3) apixaban 2.5 mg tablet (Eliquis) 2.5 mg PO BID 07/04/21 09/30/21 cholecalciferol (vitamin D3) 25 25 mcg PO DAILY 07/04/21 09/30/21 mcg (1,000 unit) capsule digoxin 125 mcg (0.125 mg) tablet 125 mcg PO DAILY 07/04/21 09/30/21 ipratropium 0.5 mg-albuterol 3 mg 3 ml inhalation Q4H PRN Shortness 07/04/21 09/30/21 (2.5 mg base)/3 mL nebulization Of Breath soln levothyroxine 25 mcg tablet 25 mcg PO DAILY 07/04/21 09/30/21 lidocaine 4 % topical patch 2 patch topical DAILY 07/04/21 09/30/21 (Blue-Emu Lidocaine Patch) metoprolol tartrate 25 mg tablet 12.5 mg PO BID 07/04/21 09/30/21 pantoprazole 40 mg tablet,delayed 40 mg PO QAM 07/04/21 09/30/21 release pravastatin 10 mg tablet 10 mg PO DAILY 07/04/21 09/30/21 Allergies Allergy/AdvReac Type Severity Reaction Status Date / Time morphine Allergy Unknown Verified 09/30/21 15:00 NSAIDS (Non-Steroidal Allergy Unknown Verified 09/30/21 15:00 Anti-Inflamma Review of Systems Review of Systems: All systems reviewed & are unremarkable except as noted in HPI and below Constitutional: Constitutional: Reports anorexia, Denies body ache(s), Denies chills, Denies excessive sweating, Reports fatigue, Denies fever(s), Denies frequent falls, Denies headache(s), Reports malaise, Reports poor appetite and Reports weakness Eyes: Eyes: Reports no additional eye complaints, Denies blurry vision, Denies change in vision, Denies irritation, Denies itchy eyes and Denies photophobia ENT: Reports system reviewed and no additional complaints, except as documented, Reports Normal hearing present, Denies change in voice, Denies dysphagia, Denies vertigo, Denies dizziness, Denies ear discharge, Denies headache(s), Denies hearing loss, Denies hoarseness, Denies nasal congestion, Denies neck pain, Denies sinus pressure, Denies sore throat and Denies throat swelling Cardiovascular: Cardiovascular: Reports no additional cardiovascular complaints, Denies chest pain, Denies syncope, Reports rapid heart rate, Reports irregular heart rhythm, Reports leg edema ( Worse on the right), Denies dyspnea and Denies slow heart rate Respiratory: Respiratory: Reports no additional respiratory complaints, Denies cough, Denies dyspnea, Denies stridor and Denies wheezing Gastrointestinal: Gastrointestinal: Reports no additional gastrointestinal complaints, Denies abdominal pain, Denies melena, Denies hematochezia, Denies dysphagia
[2021-09-30] MEDS: MAGNESIUM SULF 2 GM/WATER 50ML 2 GM/50 ML BAG IVPB (15:19)
[2021-09-30 15:42] LABS: Basophils Absolute Auto 0.01 K/mm3 (0.00-0.10); Basophils Percent Auto 0.1 % (0.0-1.0); Immature Granulocyte Absolute 0.08 K/mm3 (0.00-0.00); Immature Granulocyte Percent A 0.9 % (0.0-0.0); Lymphocytes Percent Auto 5.7 % (18.0-42.0); Mean Corpuscular HGB Conc 32.5 g/dL (32.0-36.0); Mean Corpuscular Hemoglobin 30.6 pg (27.0-31.0); Mean Corpuscular Volume 94.2 fL (78.0-102.0); Mean Platelet Volume 11.4 fl (9.2-11.8); Monocytes Absolute Auto 0.43 K/mm3 (0.10-0.90); Monocytes Percent Auto 4.9 % (2.0-11.0); Neutrophils Absolute Auto 7.7 K/mm3 (1.7-7.2); Neutrophils Percent Auto 88.4 % (50.0-70.0); Platelet Count Result 170 K/mm3 (150-420); Red Blood Count 1.73 M/mm3 (4.20-5.40); Red Cell Distribution Width 17.3 % (11.6-14.4); White Blood Count 8.7 K/mm3 (4.8-10.8)
[2021-09-30 15:46] LABS: Hematocrit 16.3 % (35.0-42.0); Hemoglobin 5.3 g/dL (11.7-13.8)
[2021-09-30] MEDS: SODIUM CHLORIDE 0.9% IV 1,000 ML 999 ML IV CONT (15:47)
[2021-09-30 16:08] LABS: Alanine Aminotransferase 12 U/L (14-59); Alkaline Phosphatase 95 U/L (46-116); Anion Gap 9 mmol/L (8-16); Aspartate Amino Transferase 26 U/L (15-37); Bilirubin,Total 0.8 mg/dL (0.00-1.00); Blood Urea Nitrogen 66 mg/dL (7-18); Carbon Dioxide 29 mmol/L (21-32); Chloride 99 mmol/L (98-108); Estimated Glomerular Filt Rate 39; Glucose 89 mg/dL (70-99); Magnesium 1.5 mg/dL (1.8-2.4); NT Pro B Type Natriuretic Pept 20314 pg/mL (0-125); Osmolality Calculated 302 mOsm/kg (285-295); Potassium 3.8 mmol/L (3.5-5.1); Sodium 137 mmol/L (136-145); Total Protein 5.1 g/dL (6.4-8.2)
[2021-09-30 16:14] LABS: CRP 11.4 mg/dL (0.0-0.9); Troponin I 123.8 ng/L (0.00-60.4)
[2021-09-30 16:16] LABS: Lactic Acid Reflex 3.5 mmol/L (0.4-2.0)
[2021-09-30 16:20] LABS: SARS-CoV-2 RNA PCR Negative (Negative)
[2021-09-30 16:28] LABS: Influenza A QL RT-PCR Negative (Negative); Influenza B QL RT-PCR Negative (Negative)
[2021-09-30 16:30] LABS: Partial Thromboplastin Time > 139.0 SEC (23.90-30.70)
[2021-09-30 16:32] LABS: INR > 18.7
[2021-09-30 17:07] LABS: Occult Blood Positive (Negative)
[2021-09-30 17:13] LABS: Erythrocyte Sedimentation Rate 55 mm/hr (0-20)
[2021-09-30] MEDS: PANTOPRAZOLE SODIUM IV 40 MG VIAL IV PUSH (17:40)
[2021-09-30] MEDS: SODIUM CHLORIDE 0.9% IV 250 ML 30 ML IV CONT (17:43)
[2021-09-30] MEDS: PHYTONADIONE INJ 10 MG/ML AMP (17:48)
[2021-09-30 17:55] LABS: Troponin I 130.6 ng/L (0.00-60.4)
[2021-09-30 18:38] LABS: Reflex Lactic Acid Yes or No Add Lactic
--- NOTE | 2021-09-30 18:59 | PC.NURSE ---
Blood product hung and verified by Macario Roberson RN. Infusion started @ 100 ml /hr. Patient sitting up in bed with eyes closed. O2 @ 3LPM/NC.
--- NOTE | 2021-09-30 19:05 | PC.NURSE ---
awaiting transfer call from [place]. blood infusing per pump with charge nurse at bedside. pt repositioned.
--- NOTE | 2021-09-30 19:33 | PC.NURSE ---
Resting quietly on stretcher. Awakens easily. No signs of resp distress- O2@3LPM/NC. Denies SOB or chest pain.
== END 2021-09-30 20:05 | disposition short-term general hospital (02) ==
PROVIDERS: Emergency Provider Emergency Medicine; PCP Internal Medicine
DX: K92.2 Gastrointestinal hemorrhage, unspecified (principal); D68.9 Coagulation defect, unspecified; I48.20 Chronic atrial fibrillation, unspecified; E87.70 Fluid overload, unspecified; N17.9 Acute kidney failure, unspecified; J18.9 Pneumonia, unspecified organism; I95.9 Hypotension, unspecified; E83.42 Hypomagnesemia; Z20.822 Contact with and (suspected) exposure to COVID-19; I50.9 Heart failure, unspecified; E78.5 Hyperlipidemia, unspecified; Z79.01 Long term (current) use of anticoagulants
CPT/HCPCS: 36415; 36430; 71045; 80053; 82272; 83605; 83735; 83880; 84484; 85025; 85610; 85652; 85730; 86140; 86850; 86900; 86901; 86920; 87040; 87502; 93005; 96361; 96365; 96366; 96375; 99285; C9113; C9803; J3430; J3475; J7030; J7050; P9016; U0003; U0005

== ENCOUNTER 2021-09-30 21:09 | Inpatient (IN) | payer MEDICARE, MEDICAID, SELFPAY ==
[2021-09-30] VITALS (7 sets, daily range): BP systolic 81–118; BP diastolic 58–76; PULSE 113–123; RESP 18–22; TEMP 36.4; O2SAT 93
--- NOTE | ~2021-09-30 | XR_ITS ---
EXAMINATION: XR chest 1V portable Exam Date/Time: 09/30/2021 21:20 CDT HISTORY: lung cancer, SOB Comparison: Same date at 3:21 PM. RESULT: Lines, tubes, and devices: None. Lungs and pleura: Slightly increased diffuse reticular pattern. Unchanged focal and patchy bilateral opacities. Known right upper lung mass somewhat better visualized. Cardiomediastinal silhouette: Stable cardiomediastinal silhouette. Other: No acute osseous or upper abdominal finding. IMPRESSION: Slightly worsening interstitial edema, overlying multifocal opacities may be secondary to edema or in fection. Reviewed, dictated and finalized at location K. IMPRESSION: Slightly worsening interstitial edema, overlying multifocal opacities may be se condary to edema or infection.
--- NOTE | ~2021-09-30 | XR_ITS ---
EXAMINATION: XR chest 1V portable DATE: 10/02/2021 05:22 INDICATION: Pulmonary edema. TECHNIQUE: A single frontal view of the chest was obtained. COMPARISON: Chest single view 09/30/2021, PET/CT 07/24/2021 FINDINGS: The patient is rotated to her right. There are coarse interstitial opacities throughout the lungs. There are patchy airspace opacities in all lung zones. There is a nodule in right upper lobe. No pleural effusion or pneumothorax. Cardiomegaly is noted. IMPRESSION: 1. Nodule in right upper lobe, consistent with primary bronchogenic carcinoma. 2. Worsened diffuse lung disease, consistent with pulmonary edema versus pneumonia superimposed on a combination of emphysema and chronic interstitial lung disease. 3. Cardiomegaly. Reviewed, dictated and finalized at location B. IMPRESSION: 1. Nodule in right upper lobe, consistent with primary bronchogenic carcinoma. 2. Worsened diffuse lung disease, consistent with pulmonary edema versus pneumo ebenezer superimposed on a combination of emphysema and chronic interstitial lung di sease. 3. Cardiomegaly.
--- NOTE | 2021-09-30 20:59 | PM.IMHP ---
H&P: HPI History of Present Illness Date/Time: 09/30/21 20:59 Chief Complaint: Shortness of breath Narrative: This is a 70-year-old female with past medical history significant for recently diagnosed lung cancer according to patient is been roughly 6 months patient has been followed up in the outpatient setting however states that on and off because is extremely fatigued and short of breath also unintentional weight loss poor appetite. Patient has been undergoing radiation for her lung cancer. Past medical history also includes atrial fibrillation for which patient is on chronic anticoagulation with Coumadin. Patient was brought to the emergency room via EMS in the field patient was found to have a blood pressure of 70 systolic. Patient was found to have a hemoglobin of 5 with hematocrit of 17, INR of 18, also AFib with RVR, transferred to our hospital. Patient has had bilateral lower extremity worsening edema with weeping, shortness of breath with minimal exertion, denies any fevers, rigors, chills, no chest pain. Patient has been admitted to intensive care unit. Review of Systems Review of Systems: Fatigue, bilateral lower extremity swelling, weeping, shortness of breath with minimal exertion, poor appetite, weight loss. Constitutional: Constitutional: Reports chills, Reports fatigue, Denies fever(s), Reports lethargy, Reports poor appetite and Reports weight loss Eyes: Eyes: Denies change in vision ENT: Denies dysphagia, Denies vertigo, Denies dizziness and Denies odynophagia Cardiovascular: Cardiovascular: Denies chest pain, Reports irregular heart rhythm, Reports leg edema, Reports palpitations, Reports dyspnea and Reports dyspnea on exertion Respiratory: Respiratory: Reports cough, Denies excessive phlegm production and Reports dyspnea Gastrointestinal: Gastrointestinal: Denies abdominal pain, Denies dyspepsia, Denies heartburn, Denies diarrhea, Denies nausea and Denies vomiting Genitourinary: Genitourinary: Denies dysuria Musculoskeletal: Musculoskeletal: Reports muscle weakness Integumentary/Breasts: Skin/Breast: Denies rash Neurologic: Denies focal weakness and Denies Sensory deficit (Neuro) Psychiatric: Psychiatric: Reports no additional psychiatric complaints and Reports as per HPI Endocrine: Endocrine: Reports fatigue Hematologic/Lymphatic: Hematologic/Lymphatic: Reports no additional hematologic/lymphatic complaints and Reports as per HPI Allergic/Immunologic: Allergic/Immunologic: Reports no additional allergic/immunologic complaints and Reports as per HPI [facility] Past Medical History Medical History Afib Hypertension Left knee DJD Surgical History Surgical History History of total left hip arthroplasty History of total right hip arthroplasty History of total right knee replacement (TKR) Social History Social History Smoking packs per day: 1.5 Smoking cigarettes per day: 30.0 Years smoked: 54 Smoking pack-years: 81.00 Smoking status: Former smoker Tobacco type: cigarettes Alcohol intake: current Drinks per week: 21 Substance use: former Substance use type: marijuana Gender identity (if verbalized by the patient): Female Spiritual care concerns: No Meds Home Medications and Allergies Home Medications Medication Instructions Recorded Confirmed Type pravastatin 10 mg tablet 10 mg PO DAILY 07/04/21 09/30/21 History amlodipine 2.5 mg tablet 2.5 mg PO DAILY 09/30/21 09/30/21 History hydrochlorothiazide 12.5 mg capsule 12.5 mg PO DAILY 09/30/21 09/30/21 History propylthiouracil 50 mg tablet 50 mg PO BID 09/30/21 10/01/21 History warfarin 2 mg tablet 2 mg PO DAILY 09/30/21 10/01/21 History Allergies Allergy/AdvReac Type Severity Reaction Status Date / Time morphine Allergy Unknown Verified 09/30/21 15:00
[2021-09-30 21:45] LABS: Basophils Percent Auto 0.2 % (0.2-1.2); Eosinophils Percent Auto 0.1 % (0-4.4); Hematocrit 21.6 % (37.0-47.0); Immature Granulocyte Absolute 0.12 K/mm3 (0.00-0.031); Immature Granulocyte Percent A 1.1 % (0-0.5); Lymphocytes Absolute Auto 0.28 K/mm3 (0.9-3.2); Lymphocytes Percent Auto 2.6 % (18.3-44.2); Mean Corpuscular HGB Conc 32.4 g/dl (32-36); Mean Corpuscular Hemoglobin 30.4 pg (26-34); Mean Corpuscular Volume 93.9 fl (80-100); Mean Platelet Volume 11.2 fl (7.4-10.4); Monocytes Absolute Auto 0.7 K/mm3 (0.1-0.6); Neutrophils Absolute Auto 9.8 K/mm3 (1.3-6.7); Platelet Count Result 151 k/mm3 (150-375); Red Cell Distribution Width 16.4 % (11.5-14.5); White Blood Count 10.9 K/mm3 (4.5-10.0)
[2021-09-30 21:54] LABS: Alanine Aminotransferase 11 U/L (6-35); Albumin Level 2.4 g/dL (3.5-5.1); Alkaline Phosphatase 94 U/L (38-126); Anion Gap 6 mmol/L (8-16); Aspartate Amino Transferase 30 U/L (14-36); Bilirubin,Total 0.9 mg/dL (0.2-1.3); Blood Urea Nitrogen 68 mg/dL (7-17); Calcium 7.4 mg/dL (8.4-10.2); Carbon Dioxide 27 mmol/L (22-30); Chloride 98 mmol/L (98-107); Estimated Glomerular Filt Rate 55; Glucose 91 mg/dL (65-110); Magnesium 2.3 mg/dL (1.6-2.3); Potassium 3.7 mmol/L (3.4-5.0); Sodium 131 mmol/L (137-145)
--- NOTE | 2021-09-30 21:55 | PCRCNOTE ---
RT placed pt on 4L NC to maintain saturation of 92% or greater. Sp02 read 92%, on 4 liters. Per pt she wears oxygen at home PRN 1-2 L.
[2021-09-30 22:02] LABS: NT Pro B Type Natriuretic Pept 13500 pg/mL (5-100)
[2021-09-30 22:34] LABS: Troponin I 0.117 ng/mL (0.000-0.034)
[2021-09-30 22:35] LABS: INR 3.5; Prothrombin Time 33.9 Seconds (11.1-14.7)
[2021-09-30 22:36] LABS: Partial Thromboplastin Time 72.7 SECONDS (22.3-36.8)
--- NOTE | 2021-09-30 23:17 | PC.NURSE ---
All labs updated to Dr. Mchugh. Give 1 unit PRBC and 2 units FFP.
[2021-10-01] VITALS (27 sets, daily range): BP systolic 94–144; BP diastolic 51–84; PULSE 55–137; RESP 12–27; TEMP 36.1–36.8; O2SAT 91–100; BMI 19.6
--- NOTE | 2021-10-01 01:25 | ADMGEN ---
This patient, Destiny Jauregui, was admitted to Intensive Care Unit-8. Patient/family oriented to hospital policies and general routines including ID bracelet, bed and alarms, visiting hours, pain management, procedures, bathroom and other care routines, personal items, smoking policy, room service/diet, and visiting hours. Information on how to activate the Rapid Response Team has been discussed. Patient/Family are encouraged to report perceived risks to care and to ask questions if they do not understand what they are told or what they should do.
[2021-10-01] MEDS: DIGOXIN INJ 250 MCG/ML 2 ML AMP (*BKC) 125 MCG IV PUSH (02:10)
--- NOTE | 2021-10-01 02:11 | PCRCNOTE ---
RT titrated pt to 2L NC. Sp02 97%, RR-14, per pt 2 liters is her baseline home oxygen.
[2021-10-01 06:27] LABS: Hematocrit 26.7 % (37.0-47.0); Hemoglobin 8.7 g/dL (12.0-15.0); Immature Platelet Fraction Pct 8.2 % (0.9-11.2); Mean Corpuscular HGB Conc 32.6 g/dl (32-36); Mean Corpuscular Hemoglobin 29.5 pg (26-34); Mean Corpuscular Volume 90.5 fl (80-100); Mean Platelet Volume 11.1 fl (7.4-10.4); Platelet Count Result 144 k/mm3 (150-375); Red Blood Count 2.95 M/mm3 (4.2-5.4); Red Cell Distribution Width 15.9 % (11.5-14.5); White Blood Count 12.1 K/mm3 (4.5-10.0)
[2021-10-01 06:37] LABS: INR 1.4; Prothrombin Time 16.4 Seconds (11.1-14.7)
[2021-10-01 06:45] LABS: Anion Gap 7 mmol/L (8-16); Blood Urea Nitrogen 58 mg/dL (7-17); Carbon Dioxide 31 mmol/L (22-30); Chloride 98 mmol/L (98-107); Estimated Glomerular Filt Rate 55; Glucose 93 mg/dL (65-110); Magnesium 2.2 mg/dL (1.6-2.3); Potassium 3.7 mmol/L (3.4-5.0); Sodium 136 mmol/L (137-145)
--- NOTE | 2021-10-01 08:09 | WPDGICN ---
Assessment and Plan Assessment and plan (1) Acute on chronic anemia: Code(s): D64.9 - Anemia, unspecified Status: Acute Assessment and Plan: Patient with significant decline in hemoglobin over the last several months. Given her occult blood in stool and significant anticoagulation. Suspect she had GI blood loss in addition to bleeding from her skin lesions. Elevated BUN suggest upper GI blood loss. It is suspicious that she may have developed an ulcer given her treatment for lung cancer. Plan to place patient on proton pump inhibitor. An EGD will be planned but will defer this till tomorrow. She does not appear to have any evidence for acute blood loss. Currently somewhat short of breath. Likely related to her lung cancer, COPD. and fluid overload. (2) Supratherapeutic INR: Code(s): R79.1 - Abnormal coagulation profile Status: Acute Assessment and Plan: Patient with excess anticoagulation markedly elevated INR at the time of presentation. This is now been corrected. Would be cautious with anticoagulation given her anemia and concern over blood loss. Consider stopping anticoagulation if appropriate. (3) Occult blood in stools: Code(s): R19.5 - Other fecal abnormalities Status: Acute Assessment and Plan: Occult blood in stool suggest internal bleeding. Peptic ulcer disease appears high on the differential diagnosis. Will place patient on PPI therapy. Plan EGD tomorrow. (4) Lung cancer: Code(s): C34.90 - Malignant neoplasm of unspecified part of unspecified bronchus or lung Status: Acute (5) Acute on chronic congestive heart failure: Code(s): I50.9 - Heart failure, unspecified Status: Acute Assessment and Plan: Patient's BNP appears quite elevated. She did receive a large amount of fluids because of concern over low blood pressure. Because of her shortness of breath we will defer endoscopy until tomorrow hoping that her breathing will be somewhat improved. GI Consult Note Consult date/time: 10/01/21 08:09 Reason for consult: Anemia and occult blood in stool. HPI: Destiny Jauregui is a 70 year old female I am asked to see at the request of the director of brand marketing service. This patient has an underlying history of lung cancer diagnosed over the last 6 months. She has a history of atrial fibrillation for which she is on anticoagulation. Currently Coumadin. She reports that she began to notice blood from her arms in several rooms on her skin. She became somewhat weak and short of breath. She presented to [facility]. At the hospital she was found to have been markedly elevated INR. Her hemoglobin had decline from baseline to hemoglobin of 5.7. For this reason she was transferred [facility] and has been transfused during the night. She was given significant fluids because it was felt she was modestly hypotensive. She denies any obvious blood in her stools. She reports that her bowel habits have been normal. Patient currently is in the intensive care unit for monitoring. Her family history is noncontributory. Review of Systems Review of Systems: Review of systems noncontributory. PMFSH Past Medical History Medical History Afib Hypertension Left knee DJD Surgical History Surgical History History of total left hip arthroplasty History of total right hip arthroplasty History of total right knee replacement (TKR) Social History Social History Smoking packs per day: 1.5 Smoking cigarettes per day: 30.0 Years smoked: 54 Smoking pack-years: 81.00 Smoking status: Former smoker Tobacco type: cigarettes Alcohol intake: current Drinks per week: 21 Substance use: former Substance use type: marijuana Gender identity (if verbalized
[2021-10-01] MEDS: PANTOPRAZOLE SODIUM IV 40 MG VIAL IV PUSH ×2 (08:34→21:00)
[2021-10-01] MEDS: propylthiouraciL 50 MG TABLET PO ×2 (08:35→16:18)
--- NOTE | 2021-10-01 09:15 | WPDCNINT ---
Assessment and Plan Assessment and plan (1) Acute on chronic anemia: Code(s): D64.9 - Anemia, unspecified Status: Acute Assessment and Plan: Patient presented with acute anemia with a hemoglobin of 5.3 and INR of > 18.7. Patient has been on Coumadin he will have may be giving when she requires -patient was given 2 units of packed RBCs and hemoglobin this morning is 8.7 -patient also has positive Hemoccult stools -appreciate GI evaluation and recommendation, EGD likely on 10/02 -likely secondary to GI bleed, started patient on Protonix IV q.12 hours -will monitor H&H q.6 hours (2) Occult blood in stools: Code(s): R19.5 - Other fecal abnormalities Status: Acute Assessment and Plan: Plan as above -obtain iron panel (3) Supratherapeutic INR: Code(s): R79.1 - Abnormal coagulation profile Status: Acute Assessment and Plan: Supratherapeutic INR likely related to Coumadin -patient was given vitamin K 10 mg x1 at the outside hospital -she also received 2 units of FFP -repeat INR this morning is 1.4 -continue to monitor (4) Atrial fibrillation with RVR: Code(s): I48.91 - Unspecified atrial fibrillation Status: Acute Assessment and Plan: Patient AFib RVR, was given a dose of digoxin -will start low-dose beta-selina (5) Acute kidney injury: Code(s): N17.9 - Acute kidney failure, unspecified Status: Acute Assessment and Plan: Patient presented with creatinine of 1.35 on admission -after IV fluids and blood products her creatinine is down to 1.00 this morning on 10/01 -continue to monitor (6) Electrolyte imbalance: Code(s): E87.8 - Other disorders of electrolyte and fluid balance, not elsewhere classified Status: Acute Assessment and Plan: Magnesium was replaced (7) Elevated troponin: Code(s): R77.8 - Other specified abnormalities of plasma proteins Status: Acute Assessment and Plan: Troponins elevated likely related to severe anemia -patient denies any chest pain, -EKG showed AFib RVR with no ST elevation (8) CHF (congestive heart failure): Code(s): I50.9 - Heart failure, unspecified Status: Acute Assessment and Plan: Echocardiogram on 06/16/2021 -EF 35-40%, - basal anteroseptal, basal inferoseptal, basal inferior, mid anteroseptal, mid inferioseptal xiong are hypokinetic -moderate calcification of aortic valve leaflets, trace aortic regurg -moderate thickening of mitral valve leaflets, moderate to severe mitral regurgitation -[id number] tricuspid regurgitation -estimated RVSP is 43-48 mmHg Plan Monitor H&H, Monitor coags Check iron panel Cardiology consult Additional Plan DVT prophylaxis: SCDs, no chemoprophylaxis secondary to severe anemia Stress ulcer prophylaxis: Protonix IV q.12 hours Code status: Full code Critical care time spent: 44 minutes This dictation may have been done utilizing a voice recognition system. Attempts have been made to correct errors. However, there may be uncorrected grammatical, spelling, and recognition errors present. Due to a high probability of clinically significant, life threatening deterioration, the patient required my highest level of preparedness to intervene emergently and I personally spent this critical care time directly and personally managing the patient. This critical care time included obtaining a history; examining the patient; pulse oximetry; ordering and review of studies; arranging urgent treatment with development of a management plan; evaluation of patient's response to treatment; frequent reassessment; and discussions with other providers. It was exclusive of separately billable procedures and treating other patients and teaching time. Please see Assessment and Plan section and the rest of the note for further information on patient assessment and treatment Apprentice/Lineman Consult Note Consult date: 10/01/21 Sandy
[2021-10-01 10:08] LABS: Iron 140 ug/dL (37-170)
[2021-10-01 10:19] LABS: Percent Iron Saturation 55 % (20-50)
--- NOTE | 2021-10-01 10:57 | PM.CNCAR ---
Assessment and Plan Assessment and plan (1) Elevated troponin: Code(s): R77.8 - Other specified abnormalities of plasma proteins Status: Acute (2) Lung cancer: Code(s): C34.90 - Malignant neoplasm of unspecified part of unspecified bronchus or lung Status: Acute Plan this is a 70-year-old lady with chronic atrial fibrillation, left ventricular systolic dysfunction and mitral valve regurgitation. She enters the hospital with shortness of breath undoubtedly partly due to her heart disease and also due to her chronic lung disease lung cancer and severe anemia. Patient's anemia has been improved with red cell transfusion she is not in decompensated heart failure by physical exam at this time. She appropriately has been taken off of anticoagulation this should be discontinued and I would consider anticoagulation contraindicated at this time. We will follow her with you and if her blood pressure improved he would probably benefit from PIPER-inhibitor or ARB given her mitral valve regurgitation. She is clearly not a candidate for mitral valve intervention /surgery. Given her malignancy with a anticipate a very conservative approach to her case. Niraj Womack MD [facility] History of Present Illness History of Present Illness Consult date/time: 10/01/21 10:57 Consult reason: atrial fibrillation Reason For Visit: Severe anemia/coagulopathy Narrative: This is a 70-year-old patient I am seeing this morning at the request of the hospitalist service because of left ventricular systolic dysfunction and atrial fibrillation as well as valvular heart disease. She came to the hospital on transfer from [place] yesterday because of symptoms of dyspnea which have been chronic but became severe for several days. Patient also has a history of significant chronic lung disease and lung cancer which is being treated with radiation therapy at another institution. We do not have the records or details of the status of her malignancy. She is actively undergoing radiation therapy. Because of her history of atrial fibrillation she has been anticoagulated with Coumadin. Upon admission to the hospital it was noted that she was severely anemic with a hemoglobin level just over 5 g. She has been transfused packed red cell volume and has a hemoglobin of 8.7 at this time and does feel better and does not have any other active complaints. She is not reporting any symptoms of orthopnea or PND she does have some mild chronic lower extremity edema does not think that has gotten any worse recently. The patient's atrial fibrillation is known to be chronic she is not on any rate controlling medications presumably she does not require them her medical regimen prior to admission included low doses of amlodipine, hydrochlorothiazide and pravastatin as well as her Coumadin. She did have an echocardiogram done at another institution in May of this year which demonstrated moderate left ventricular systolic dysfunction with an ejection fraction of about 35% and moderate to severe mitral valve regurgitation. Review of Systems Constitutional: Constitutional: Reports lethargy and Reports weakness Eyes: Eyes: Reports no additional eye complaints ENT: Reports system reviewed and no additional complaints, except as documented Cardiovascular: Cardiovascular: Reports no additional cardiovascular complaints Respiratory: Respiratory: Reports dyspnea Gastrointestinal: Gastrointestinal: Reports no additional gastrointestinal complaints Musculoskeletal: Musculoskeletal: Reports back pain Integumentary/Breasts: Skin/Breast: Reports system reviewed and no additional complaints, except as docu Neurologic: Comments: No cognition Endocrine: Endocrine: Reports no additional endocrine complaints Hematologic/Lymphatic: Hematologic/Lymphatic: Reports no additional hematologic/lymphatic complaints Allergic/Immunologic: Allergic/Immunologic: Reports n
[2021-10-01 11:44] LABS: Hematocrit 25.4 % (37.0-47.0); Hemoglobin 8.4 g/dL (12.0-15.0)
--- NOTE | 2021-10-01 12:50 | PM.IMPN ---
Progress Note: A&P Assessment and Plan (1) Acute on chronic anemia: Code(s): D64.9 - Anemia, unspecified Status: Acute Assessment and Plan: Patient presented with acute anemia with a hemoglobin of 5.3 and INR of > 18.7. -patient was given 2 units of packed RBCs and hemoglobin this morning is 8.7 -patient also has positive Hemoccult stools -appreciate GI evaluation and recommendation, EGD likely on 10/02 -continue PPI (2) Occult blood in stools: Code(s): R19.5 - Other fecal abnormalities Status: Acute Assessment and Plan: Plan as above -obtain iron panel (3) Supratherapeutic INR: Code(s): R79.1 - Abnormal coagulation profile Status: Acute Assessment and Plan: Supratherapeutic INR likely related to Coumadin -patient was given vitamin K 10 mg x1 at the outside hospital -she also received 2 units of FFP -repeat INR this morning is 1.4 -continue to monitor (4) Atrial fibrillation with RVR: Code(s): I48.91 - Unspecified atrial fibrillation Status: Acute Assessment and Plan: Patient AFib RVR, was given a dose of digoxin -will start low-dose beta-selina (5) Acute kidney injury: Code(s): N17.9 - Acute kidney failure, unspecified Status: Acute Assessment and Plan: Patient presented with creatinine of 1.35 on admission -monitor (6) Electrolyte imbalance: Code(s): E87.8 - Other disorders of electrolyte and fluid balance, not elsewhere classified Status: Acute Assessment and Plan: Monitor (7) Elevated troponin: Code(s): R77.8 - Other specified abnormalities of plasma proteins Status: Acute Assessment and Plan: Likely related to type 2 SC, no chest pain. (8) CHF (congestive heart failure): Code(s): I50.9 - Heart failure, unspecified Status: Acute Assessment and Plan: Echocardiogram on 06/16/2021 -EF 35-40%, - basal anteroseptal, basal inferoseptal, basal inferior, mid anteroseptal, mid inferioseptal xiong are hypokinetic -moderate calcification of aortic valve leaflets, trace aortic regurg -moderate thickening of mitral valve leaflets, moderate to severe mitral regurgitation -[id number] tricuspid regurgitation -estimated RVSP is 43-48 mmHg -monitor volume status (9) Elevated brain natriuretic peptide (BNP) level: Code(s): R79.89 - Other specified abnormal findings of blood chemistry Status: Acute (10) Lung cancer: Code(s): C34.90 - Malignant neoplasm of unspecified part of unspecified bronchus or lung Status: Acute (11) Acute on chronic congestive heart failure: Code(s): I50.9 - Heart failure, unspecified Status: Acute (12) Severe protein-calorie malnutrition: Code(s): E43 - Unspecified severe protein-calorie malnutrition Status: Acute Subjective Date/time seen: 10/01/21 12:50 no new complaints Exam Narrative: General: Frail female in no acute distress HEENT: Moist oral mucosa, pupils equal and reactive, sclerae is clear Neck: Supple, no lymphadenopathy Respiratory: Coarse breath sounds bilaterally, decreased at bases Cardiac: Irregularly irregular tachycardic, 3/6 murmur at the apex Abdomen: Soft, tender to palpation in the epigastric region, normoactive bowel sounds, nondistended Extremities: Bilateral lower extremity pitting edema 2+ Neuro: Patient is awake, alert, oriented x3, follows simple commands in all extremities and answers to questions appropriately Skin: Warm and weeping noted on the lower extremities Psych: Normal mentation, normal affect Const: General: cooperative, comfortable, no acute distress, well developed, alert, awake, acute distress mild and respiratory, ill appearing acutely and tired appearing Nutritional Appearance: average body habitus, cachectic and other Orientation/consciousness: patient oriented x3 HENMT: Head: normal to inspection (Bilateral temporal muscle wastin
[2021-10-01] MEDS: SILVERGEL (ELTA) 45 ML 1 APPLIC TOPICAL (13:48)
--- NOTE | 2021-10-01 16:28 | PC.NURSE ---
This patient, Destiny Jauregui, was transferred to [facility] on 10/01/21 at 1620. Personal belongings sent with patient. Report given to Cuca. Appropriate documentation sent with patient.
--- NOTE | 2021-10-01 16:53 | PC.NURSE ---
[id number]- received pt from ICU to room 207- pt oriented to room and routines of floor. call light in reach.monitor on atrial fibrillation 100; vss
[2021-10-02] VITALS (24 sets, daily range): BP systolic 75–107; BP diastolic 42–79; PULSE 51–133; RESP 18–30; TEMP 36.1–37.1; O2SAT 91–97
[2021-10-02] MEDS: ACETAMINOPHEN 500 MG TABLET PO ×2 (00:25→20:38)
[2021-10-02 05:12] LABS: Basophils Absolute Auto 0.1 K/mm3 (0.0-0.1); Basophils Percent Auto 0.8 % (0.2-1.2); Eosinophils Percent Auto 0.2 % (0-4.4); Hematocrit 26.4 % (37.0-47.0); Hemoglobin 8.6 g/dL (12.0-15.0); Immature Granulocyte Absolute 0.15 K/mm3 (0.00-0.031); Immature Granulocyte Percent A 1.3 % (0-0.5); Immature Platelet Fraction Pct 8.6 % (0.9-11.2); Lymphocytes Absolute Auto 0.28 K/mm3 (0.9-3.2); Lymphocytes Percent Auto 2.5 % (18.3-44.2); Mean Corpuscular HGB Conc 32.6 g/dl (32-36); Mean Corpuscular Hemoglobin 29.6 pg (26-34); Mean Corpuscular Volume 90.7 fl (80-100); Mean Platelet Volume 11.5 fl (7.4-10.4); Monocytes Absolute Auto 0.8 K/mm3 (0.1-0.6); Monocytes Percent Auto 6.8 % (2.6-8.5); Neutrophils Percent Auto 88.4 % (45.5-73.1); Nucleated Red Blood Cells Perc 0.2 % (0.0-0.2); Platelet Count Result 123 k/mm3 (150-375); Red Blood Count 2.91 M/mm3 (4.2-5.4); Red Cell Distribution Width 16.9 % (11.5-14.5); White Blood Count 11.4 K/mm3 (4.5-10.0)
[2021-10-02 05:29] LABS: Alanine Aminotransferase 23 U/L (6-35); Albumin Level 2.8 g/dL (3.5-5.1); Alkaline Phosphatase 104 U/L (38-126); Anion Gap -1 mmol/L (8-16); Aspartate Amino Transferase 35 U/L (14-36); Bilirubin,Total 0.7 mg/dL (0.2-1.3); Blood Urea Nitrogen 44 mg/dL (7-17); Calcium 8.1 mg/dL (8.4-10.2); Carbon Dioxide 38 mmol/L (22-30); Chloride 98 mmol/L (98-107); Estimated CRCL calculation 55 ml/min; Estimated Glomerular Filt Rate > 60; Glucose 103 mg/dL (65-110); Lactic Acid Reflex 1.6 mmol/L (0.7-2.0); Magnesium 1.7 mg/dL (1.6-2.3); Phosphorus 1.9 mg/dL (2.5-4.5); Potassium 3.3 mmol/L (3.4-5.0); Sodium 135 mmol/L (137-145)
[2021-10-02 05:40] LABS: Anisocytosis 3+ (NORMAL); Hypochromasia 2+ (NORMAL); Poikilocytosis 2+ (NORMAL); Target Cells 1+ (NORMAL)
[2021-10-02] MEDS: PANTOPRAZOLE SODIUM IV 40 MG VIAL IV PUSH (09:07)
[2021-10-02] MEDS: SILVERGEL (ELTA) 45 ML 1 APPLIC TOPICAL (09:08)
[2021-10-02] MEDS: METOPROLOL TARTRATE 6.25 MG TABLET PO ×2 (09:34→20:39)
[2021-10-02 10:00] LABS: INR 2.2
[2021-10-02] MEDS: KCL 20 MEQ/SW 100 ML 100 ML 50 MEQ IVPB (10:54)
[2021-10-02 10:59] LABS: Prothrombin Time 23.8 Seconds (11.1-14.7)
--- NOTE | 2021-10-02 11:58 | PM.PNCARD ---
Progress Note: A&P Assessment and Plan (1) Elevated troponin: Code(s): R77.8 - Other specified abnormalities of plasma proteins Status: Acute (2) Lung cancer: Code(s): C34.90 - Malignant neoplasm of unspecified part of unspecified bronchus or lung Status: Acute Plan Awaiting endoscopy today. This is a 70-year-old lady with chronic atrial fibrillation, left ventricular systolic dysfunction and mitral valve regurgitation. She enters the hospital with shortness of breath undoubtedly partly due to her heart disease and also due to her chronic lung disease lung cancer and severe anemia. Patient's anemia has been improved with red cell transfusion she is not in decompensated heart failure by physical exam at this time. She appropriately has been taken off of anticoagulation this should be discontinued and I would consider anticoagulation contraindicated at this time. We will follow her with you and if her blood pressure improved he would probably benefit from PIPER-inhibitor or ARB given her mitral valve regurgitation. No changes in this plan from yesterday. She is receiving potassium supplement and is awaiting EGD Subjective Date/time seen: 10/02/21 11:58 Interval history: 70-year-old with shortness of breath Date of service 10/02/2021: Awaiting endoscopy. She is mildly short of breath. No chest pain. She is annoyed by being NPO Review of Systems Constitutional: Constitutional: Reports lethargy and Reports weakness Eyes: Eyes: Reports no additional eye complaints ENT: Reports system reviewed and no additional complaints, except as documented Cardiovascular: Cardiovascular: Reports no additional cardiovascular complaints and Reports dyspnea Respiratory: Respiratory: Reports dyspnea Gastrointestinal: Gastrointestinal: Reports no additional gastrointestinal complaints Musculoskeletal: Musculoskeletal: Reports back pain Integumentary/Breasts: Skin/Breast: Reports system reviewed and no additional complaints, except as docu Neurologic: Reports weakness Endocrine: Endocrine: Reports no additional endocrine complaints Hematologic/Lymphatic: Hematologic/Lymphatic: Reports no additional hematologic/lymphatic complaints Allergic/Immunologic: Allergic/Immunologic: Reports no additional allergic/immunologic complaints Exam Const: General: comfortable and no acute distress Other: thin cachectic looking lady appears older than her stated age no distress HENMT: Mouth: Yes dry mucous membranes Eyes: Sclera: sclerae normal Pupils: Equal, round and reactive pupils present Neck: Neck: supple and no JVD Resp: Auscultation: diminished lung sounds Other: tubular breath sounds throughout all lung aleman Cardio: Rhythm: abnormal rhythm irregularly irregular GI: Auscultation: normal bowel sounds Skin: General skin exam: normal color Neuro: Cranial nerves: Yes Equal, round and reactive pupils present Other: normal cognition Extrem: Other: minimal peripheral edema no palpable pulses below the femoral triangle Objective Data Vital Signs Vital Signs: Vital Signs - 24 hr 10/01/21 12:00 10/01/21 12:00 10/01/21 12:00 Temperature 36.4 C Pulse Rate 105 H 111 H Respiratory Rate 27 H Blood Pressure 99/68 L Pulse Oximetry 91 92 Oxygen Delivery Nasal Cannula Oxygen Flow Rate 2 10/01/21 14:00 10/01/21 16:00 10/01/21 16:00 Temperature 36.8 C Pulse Rate 115 H 103 H 75 Respiratory Rate 12 Blood Pressure 144/51 H Pulse Oximetry 92 Oxygen Delivery Oxygen Flow Rate 10/01/21 16:00 10/01/21 18:00 10/01/21 20:00 Temperature 36.6 C Pulse Rate 103 H 101 H 92 Respiratory Rate 21 H 22 H Blood Pressure 101/67 Pulse Oximetry 96 98 Oxygen Delivery Nasal Cannula Oxygen Flow Rate 2 10/01/21 20:00 10/01/21 20:36 10/01/21 20:49 Temperature Pulse Rate 113 H 98 Respiratory Rate 20 Blood Pressure 102/65 Pulse Oximetry 93 Oxy
--- NOTE | 2021-10-02 12:10 | PM.IMPN ---
Progress Note: A&P Assessment and Plan (1) Acute on chronic anemia: Code(s): D64.9 - Anemia, unspecified Status: Acute Assessment and Plan: -status post transfusion, hemoglobin stable -appreciate GI evaluation and recommendation, EGD likely on 10/02 -continue PPI (2) Occult blood in stools: Code(s): R19.5 - Other fecal abnormalities Status: Acute Assessment and Plan: Monitor (3) Supratherapeutic INR: Code(s): R79.1 - Abnormal coagulation profile Status: Acute Assessment and Plan: Trend INR. (4) Atrial fibrillation with RVR: Code(s): I48.91 - Unspecified atrial fibrillation Status: Acute Assessment and Plan: Patient AFib RVR, was given a dose of digoxin -will start low-dose beta-selina (5) Acute kidney injury: Code(s): N17.9 - Acute kidney failure, unspecified Status: Acute Assessment and Plan: Patient presented with creatinine of 1.35 on admission -monitor (6) Electrolyte imbalance: Code(s): E87.8 - Other disorders of electrolyte and fluid balance, not elsewhere classified Status: Acute Assessment and Plan: Monitor (7) Elevated troponin: Code(s): R77.8 - Other specified abnormalities of plasma proteins Status: Acute Assessment and Plan: Likely related to type 2 MD, no chest pain. (8) CHF (congestive heart failure): Code(s): I50.9 - Heart failure, unspecified Status: Acute Assessment and Plan: Echocardiogram on 06/16/2021 -EF 35-40%, - basal anteroseptal, basal inferoseptal, basal inferior, mid anteroseptal, mid inferioseptal xiong are hypokinetic -moderate calcification of aortic valve leaflets, trace aortic regurg -moderate thickening of mitral valve leaflets, moderate to severe mitral regurgitation -[id number] tricuspid regurgitation -estimated RVSP is 43-48 mmHg -monitor volume status (9) Elevated brain natriuretic peptide (BNP) level: Code(s): R79.89 - Other specified abnormal findings of blood chemistry Status: Acute (10) Lung cancer: Code(s): C34.90 - Malignant neoplasm of unspecified part of unspecified bronchus or lung Status: Acute (11) Acute on chronic congestive heart failure: Code(s): I50.9 - Heart failure, unspecified Status: Acute (12) Severe protein-calorie malnutrition: Code(s): E43 - Unspecified severe protein-calorie malnutrition Status: Acute Additional Plan DVT prophylaxis: SCDs, no chemoprophylaxis secondary to severe anemia Stress ulcer prophylaxis: Protonix IV q.12 hours Code status: Full code Critical care time spent: 44 minutes This dictation may have been done utilizing a voice recognition system. Attempts have been made to correct errors. However, there may be uncorrected grammatical, spelling, and recognition errors present. Due to a high probability of clinically significant, life threatening deterioration, the patient required my highest level of preparedness to intervene emergently and I personally spent this critical care time directly and personally managing the patient. This critical care time included obtaining a history; examining the patient; pulse oximetry; ordering and review of studies; arranging urgent treatment with development of a management plan; evaluation of patient's response to treatment; frequent reassessment; and discussions with other providers. It was exclusive of separately billable procedures and treating other patients and teaching time. Please see Assessment and Plan section and the rest of the note for further information on patient assessment and treatment Subjective Date/time seen: 10/02/21 12:10 No new complaints Exam Narrative: General: Frail female in no acute distress HEENT: Moist oral mucosa, pupils equal and reactive, sclerae is clear Neck: Supple, no lymphadenopathy Respiratory: Coarse breath sounds bilaterally, decreased at
--- NOTE | 2021-10-02 12:56 | WPDANESEPPF ---
Anes - Initial Pre Proc Eval Procedure: Operation Date: 10/02/21 14:00 Proposed Procedures p Esophagogastroduodenoscopy - Hernesto Ardon MD Date/Time: 10/02/21 12:56 Surgeon: Mookie Dockery MD Pre Op Diagnosis: Severe anemia/coagulopathy Patient Data Age: 70 Gender: F Height: 1.65 m Weight: 53.4 kg Last Vital Signs Temp 36.1 C L 10/02/21 11:57 Pulse 107 H 10/02/21 11:57 Resp 22 H 10/02/21 11:57 BP 98/79 L 10/02/21 11:57 Pulse Ox 95 10/02/21 11:57 O2 Del Method Nasal Cannula 10/02/21 11:33 O2 Flow Rate 2 10/02/21 11:33 Allergies Allergy/AdvReac Type Severity Reaction Status Date / Time morphine Allergy Unknown Verified 09/30/21 15:00 NSAIDS (Non-Steroidal Allergy Unknown Verified 09/30/21 15:00 Anti-Inflamma Home Medications Medication Instructions Recorded Confirmed Type pravastatin 10 mg tablet 10 mg PO DAILY 07/04/21 09/30/21 History amlodipine 2.5 mg tablet 2.5 mg PO DAILY 09/30/21 09/30/21 History hydrochlorothiazide 12.5 mg capsule 12.5 mg PO DAILY 09/30/21 09/30/21 History propylthiouracil 50 mg tablet 50 mg PO BID 09/30/21 10/01/21 History warfarin 2 mg tablet 2 mg PO DAILY 09/30/21 10/01/21 History Laboratory Tests 10/02/21 10/02/21 10/02/21 04:33 04:33 04:33 WBC 11.4 K/mm3 H K/mm3 (4.5-10.0) RBC 2.91 M/mm3 L M/mm3 (4.2-5.4) Hgb 8.6 g/dL L g/dL (12.0-15.0) Hct 26.4 % L % (37.0-47.0) MCV 90.7 fl fl (80-100) MCH 29.6 pg pg (26-34) MCHC 32.6 g/dl g/dl (32-36) RDW 16.9 % H % (11.5-14.5) Plt Count 123 k/mm3 L k/mm3 (150-375) MPV 11.5 fl H fl (7.4-10.4) Immature Gran % (Auto) 1.3 % H % (0-0.5) Neut % (Auto) 88.4 % H % (45.5-73.1) Lymph % (Auto) 2.5 % L % (18.3-44.2) [place] % (Auto) 6.8 % % (2.6-8.5) Eos % (Auto) 0.2 % % (0-4.4) Baso % (Auto) 0.8 % % (0.2-1.2) Lymph # (Auto) 0.28 K/mm3 L K/mm3 (0.9-3.2) [place] # (Auto) 0.8 K/mm3 H K/mm3 (0.1-0.6) Eos # (Auto) 0.0 K/mm3 K/mm3 (0-0.3) Baso # (Auto) 0.1 K/mm3 K/mm3 (0.0-0.1) Abs Immat Gran (auto) 0.15 K/mm3 H K/mm3 (0.00-0.031) Absolute Neuts (auto) 10.0 K/mm3 H K/mm3 (1.3-6.7) Absolute Nucleated RBC 0.0 K/mm3 K/mm3 (0.0-0.012) Nucleated RBC % 0.2 % % (0.0-0.2) Platelet Estimate Slightly decreased (Adequate) % Immature Plt Fraction 8.6 % % (0.9-11.2) Hypochromasia 2+ (NORMAL) Poikilocytosis 2+ (NORMAL) Anisocytosis 3+ (NORMAL) Target Cells 1+ (NORMAL) PT INR Sodium 135 mmol/L L mmol/L (137-145) Potassium 3.3 mmol/L L mmol/L (3.4-5.0) Chloride 98 mmol/L mmol/L (98-107) Carbon Dioxide 38 mmol/L H mmol/L (22-30) Anion Gap -1 mmol/L L mmol/L (8-16) BUN 44 mg/dL H D mg/dL (7-17) Creatinine 0.70 mg/dL mg/dL (0.7-1.0) Estim Creat Clear Calc 55 ml/min ml/min Estimated GFR > 60 (59 - ) Glucose 103 mg/dL mg/dL (65-110) Lactic Acid 1.6 mmol/L mmol/L (0.7-2.0) Calcium 8.1 mg/dL L mg/dL (8.4-10.2) Phosphorus 1.9 mg/dL L mg/dL (2.5-4.5) Magnesium 1.7 mg/dL mg/dL (1.6-2.3) Total Bilirubin 0.7 mg/dL mg/dL (0.2-1.3) AST 35 U/L U/L (14-36) ALT 23 U/L U/L (6-35) Alkaline Phosphatase 104 U/L U/L (38-126) Total Protein 5.0 g/dL L g/dL (6.3-8.2) Albumin 2.8 g/dL L g/dL (3.5-5.1) 10/02/21 09:42 WBC RBC Hgb Hct MCV MCH MCHC RDW Plt Count MPV Immature Gran % (Auto) Neut % (Auto) Lymph % (Auto) [place] % (Auto) Eos % (Auto)
[2021-10-02] MEDS: LACTATED RINGERS 1,000 ML 150 ML IV CONT (13:03)
--- NOTE | 2021-10-02 13:14 | PCCCNOTE ---
On 10/02/21, the student, [Jessa Queen], provided care and completed [facility] documentation on this patient. I have reviewed the student's documentation and agree with the findings.
[2021-10-02] MEDS: METOPROLOL TARTRATE INJ 5 MG/5 ML VIAL IV PUSH (14:07)
--- NOTE | 2021-10-02 14:08 | SUR.PHASEII ---
Patient went into A-fib RVR in post op after EGD. Bp stable at 107/78. HR is running in 130's. Informed Dr. Mcguire, Anesthesia of patients condition. Ordered 5ml of metoprolol injection once. TONIA Martinez administering to patient at this time. Increased patient O2 to 4L to improve sats which are remaining in low 90's. Patient resting comfortably in bed.
[2021-10-02] MEDS: propylthiouraciL 50 MG TABLET PO ×2 (14:42→18:26)
--- NOTE | 2021-10-02 15:06 | SUR.PHASEII ---
H. pylori read positive. Placed call to Dr. Ardon to inform him of result. Result recorded in computer.
[2021-10-02] MEDS: SODIUM CHLORIDE 0.9% IV 500 ML IV CONT (18:24)
[2021-10-02] MEDS: diphenhydrAMINE HCl INJ 50 MG/ML VIAL 25 MG IV PUSH (23:48)
[2021-10-03] VITALS (8 sets, daily range): BP systolic 87–96; BP diastolic 52–76; PULSE 91–133; RESP 18–20; TEMP 36.6; O2SAT 93–98
[2021-10-03 05:12] LABS: Hematocrit 27.2 % (37.0-47.0); Hemoglobin 8.9 g/dL (12.0-15.0); Immature Platelet Fraction Pct 11.8 % (0.9-11.2); Mean Corpuscular HGB Conc 32.7 g/dl (32-36); Mean Corpuscular Hemoglobin 29.9 pg (26-34); Mean Corpuscular Volume 91.3 fl (80-100); Platelet Count Result 98 k/mm3 (150-375); Red Blood Count 2.98 M/mm3 (4.2-5.4); Red Cell Distribution Width 17.2 % (11.5-14.5); White Blood Count 15.2 K/mm3 (4.5-10.0)
[2021-10-03 05:25] LABS: Alanine Aminotransferase 21 U/L (6-35); Albumin Level 2.8 g/dL (3.5-5.1); Alkaline Phosphatase 121 U/L (38-126); Anion Gap 6 mmol/L (8-16); Aspartate Amino Transferase 45 U/L (14-36); Bilirubin,Total 0.9 mg/dL (0.2-1.3); Blood Urea Nitrogen 35 mg/dL (7-17); Calcium 8.2 mg/dL (8.4-10.2); Carbon Dioxide 33 mmol/L (22-30); Chloride 99 mmol/L (98-107); Estimated CRCL calculation 55 ml/min; Estimated Glomerular Filt Rate > 60; Glucose 118 mg/dL (65-110); Potassium 3.5 mmol/L (3.4-5.0); Sodium 138 mmol/L (137-145)
--- NOTE | 2021-10-03 07:55 | WPDANESPN ---
Anes - Prog Note Post-Op Date/Time: 10/03/21 07:55 Cardiovascular status: normal Respiratory status: normal Airway patency: baseline Mental status: baseline Post-Op hydration status: normal Vital Signs: Last Vital Signs Temp 36.6 C 10/03/21 07:54 Pulse 91 10/03/21 07:54 Resp 20 10/03/21 07:54 BP 96/76 L 10/03/21 07:54 Pulse Ox 93 10/03/21 07:54 O2 Del Method Nasal Cannula 10/02/21 14:11 O2 Flow Rate 4 10/02/21 14:11 Pain Score (VAS): 3 I/O: Intake & Output 10/02/21 10/02/21 10/03/21 15:59 23:59 07:59 Intake Total 300 740 200 Output Total 550 300 Balance 300 190 -100 Laboratory Tests 10/03/21 04:38 10/03/21 04:38 10/02/21 10/03/21 10/03/21 09:42 04:38 04:38 WBC 15.2 H RBC 2.98 L Hgb 8.9 L Hct 27.2 L MCV 91.3 MCH 29.9 MCHC 32.7 RDW 17.2 H Plt Count 98 L MPV 12.0 H % Immature Plt Fraction 11.8 H PT 23.8 H D INR 2.2 Sodium 138 Potassium 3.5 Chloride 99 Carbon Dioxide 33 H Anion Gap 6 L BUN 35 H Creatinine 0.70 Estim Creat Clear Calc 55 Estimated GFR > 60 Glucose 118 H Calcium 8.2 L Total Bilirubin 0.9 AST 45 H ALT 21 Alkaline Phosphatase 121 Total Protein 5.0 L Albumin 2.8 L Microbiology 09/30/21 21:42 Urine Catheterized Urine Culture - Preliminary Escherichia Coli Post-procedural complaints: none Patient Feedback: Patient satisfied with anesthetic care.
[2021-10-03] MEDS: SILVERGEL (ELTA) 45 ML 1 APPLIC TOPICAL (08:34)
[2021-10-03] MEDS: propylthiouraciL 50 MG TABLET PO (08:34)
[2021-10-03] MEDS: PANTOPRAZOLE 40 MG TABLET PO (08:34)
--- NOTE | 2021-10-03 09:12 | WPDGIPROGNO ---
Progress Note: A&P Assessment and Plan (1) Duodenal bulb ulcer: Code(s): K26.9 - Duodenal ulcer, unspecified as acute or chronic, without hemorrhage or perforation Status: Acute Assessment and Plan: Patient found to have duodenal ulcers at time of endoscopy. This appears to have been caused a recent worsening of her anemia. Long-term PPI use advised. Avoid NSAIDs. Would restart anticoagulation after a week's time. To allow some healing. Continue monitor hemoglobin as an outpatient. She does have a baseline anemia with her other comorbid diseases. Okay with GI service to discharge today. (2) Lung cancer: Code(s): C34.90 - Malignant neoplasm of unspecified part of unspecified bronchus or lung Status: Acute (3) CHF (congestive heart failure): Code(s): I50.9 - Heart failure, unspecified Status: Acute (4) Atrial fibrillation with RVR: Code(s): I48.91 - Unspecified atrial fibrillation Status: Acute Subjective Date/time seen: 10/03/21 09:12 Patient alert comfortable this morning. No obvious bleeding reported denies abdominal pain. Tolerating diet. Review of Systems Review of Systems: Review of systems noncontributory. Exam Narrative: Physical exam reveals patient alert comfortable at rest. She denies abdominal pain or bleeding. Lungs Exam revealed a few rhonchi. Heart without murmur. Abdomen bowel sounds present soft nontender with no organomegaly. Objective Data Vital Signs Vital Signs: Vital Signs - 24 hr 10/02/21 09:34 10/02/21 09:43 10/02/21 10:00 Temperature Pulse Rate 122 H 107 H Respiratory Rate Blood Pressure Pulse Oximetry Oxygen Delivery Nasal Cannula Oxygen Flow Rate 2 10/02/21 11:33 10/02/21 11:57 10/02/21 13:08 Temperature 97.0 F L 97.2 F L Pulse Rate 107 H 82 Respiratory Rate 22 H 18 Blood Pressure 98/79 L 104/77 Pulse Oximetry 95 95 Oxygen Delivery Nasal Cannula Nasal Cannula Oxygen Flow Rate 2 2 10/02/21 12:00 10/02/21 12:00 10/02/21 14:07 Temperature Pulse Rate 119 H 133 H Respiratory Rate Blood Pressure Pulse Oximetry 97 Oxygen Delivery Nasal Cannula Oxygen Flow Rate 2 10/02/21 13:41 10/02/21 13:51 10/02/21 14:01 Temperature Pulse Rate 111 H 126 H 97 Respiratory Rate 24 H 30 H 23 H Blood Pressure 88/66 L 100/62 107/78 Pulse Oximetry 94 93 93 Oxygen Delivery Nasal Cannula Nasal Cannula Nasal Cannula Oxygen Flow Rate 3 3 4 10/02/21 14:11 10/02/21 14:00 10/02/21 16:40 Temperature 98.2 F Pulse Rate 86 100 Respiratory Rate 22 H 18 Blood Pressure 101/68 93/69 L Pulse Oximetry 94 94 Oxygen Delivery Nasal Cannula Nasal Cannula Oxygen Flow Rate 4 2 10/02/21 16:00 10/02/21 18:06 10/02/21 20:00 Temperature 97.6 F Pulse Rate 98 115 H Respiratory Rate 20 Blood Pressure 75/42 L 100/71 Pulse Oximetry 91 Oxygen Delivery Oxygen Flow Rate 10/02/21 20:39 10/02/21 20:00 10/02/21 22:00 Temperature Pulse Rate 120 H 116 H 116 H Respiratory Rate Blood Pressure Pulse Oximetry Oxygen Delivery Oxygen Flow Rate 10/02/21 23:57 10/03/21 00:00 10/03/21 04:00 Temperature 98.4 F Pulse Rate 110 H 117 H 133 H Respiratory Rate 20 Blood Pressure 97/72 L Pulse Oximetry 92 Oxygen Delivery Oxygen Flow Rate 10/03/21 04:45 10/03/21 07:54 10/03/21 08:34 Temperature 97.9 F 97.8 F Pulse Rate 127 H 91 131 H Respiratory Rate 18 20 Blood Pressure 87/52 L 96/76 L Pulse Oximetry 98 93 Oxygen Delivery Oxygen Flow Rate Intake/Output Intake/Output: Intake & Output 09/30/21 10/01/21 10/02/21 10/03/21 23:59 23:59 23:59 23:59 Intake Total 2411 1240 200 Output Total 1400 1500 300 Balance 1011 -260 -100 Meds/Results Medications: Active Medications Generic Name Dose Route Start Last Admin Trade Name Freq PRN Reason Stop Dose Admin Acetaminophen 500 mg 10/01/21 07:47 10/02/21
[2021-10-03] MEDS: SODIUM CHLORIDE 0.9% IV 500 ML IV CONT (09:24)
--- NOTE | 2021-10-03 10:57 | PC.NURSE ---
Patient left AMA. Patient and were educated about the risks of leaving AMA and the benefits of staying. Patient was wheeled out by her and stated that she had oxygen in the car. They were given a prescription for an antibiotic. IV removed and pictures of wounds taken before patient left.
--- NOTE | 2021-10-07 09:06 | PM.DS ---
DS: Admitting Diagnosis Discharge Date 10/03/21 Admitting Diagnosis Anemia, UTI DS: Discharge Diagnosis Discharge Diagnosis (1) Acute on chronic anemia: Code(s): D64.9 - Anemia, unspecified Status: Acute Assessment and Plan: -status post transfusion, hemoglobin stable -appreciate GI evaluation and recommendation, EGD likely on 10/02 -continue PPI (2) Occult blood in stools: Code(s): R19.5 - Other fecal abnormalities Status: Acute Assessment and Plan: Monitor (3) Supratherapeutic INR: Code(s): R79.1 - Abnormal coagulation profile Status: Acute Assessment and Plan: Trend INR. (4) Atrial fibrillation with RVR: Code(s): I48.91 - Unspecified atrial fibrillation Status: Acute Assessment and Plan: Patient AFib RVR, was given a dose of digoxin -will start low-dose beta-selina (5) Acute kidney injury: Code(s): N17.9 - Acute kidney failure, unspecified Status: Acute Assessment and Plan: Patient presented with creatinine of 1.35 on admission -monitor (6) Electrolyte imbalance: Code(s): E87.8 - Other disorders of electrolyte and fluid balance, not elsewhere classified Status: Acute Assessment and Plan: Monitor (7) Elevated troponin: Code(s): R77.8 - Other specified abnormalities of plasma proteins Status: Acute Assessment and Plan: Likely related to type 2 CO, no chest pain. (8) CHF (congestive heart failure): Code(s): I50.9 - Heart failure, unspecified Status: Acute Assessment and Plan: Echocardiogram on 06/16/2021 -EF 35-40%, - basal anteroseptal, basal inferoseptal, basal inferior, mid anteroseptal, mid inferioseptal xiong are hypokinetic -moderate calcification of aortic valve leaflets, trace aortic regurg -moderate thickening of mitral valve leaflets, moderate to severe mitral regurgitation -[id number] tricuspid regurgitation -estimated RVSP is 43-48 mmHg -monitor volume status (9) Elevated brain natriuretic peptide (BNP) level: Code(s): R79.89 - Other specified abnormal findings of blood chemistry Status: Acute (10) Lung cancer: Code(s): C34.90 - Malignant neoplasm of unspecified part of unspecified bronchus or lung Status: Acute (11) Acute on chronic congestive heart failure: Code(s): I50.9 - Heart failure, unspecified Status: Acute (12) Severe protein-calorie malnutrition: Code(s): E43 - Unspecified severe protein-calorie malnutrition Status: Acute DS: Summary Hospital Course Hospital Course: Patient was admitted for anemia required transfusion. 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 Patient was started on appropriate therapy and was also found have a UTI. Nonetheless on October 03, 2021, the patient left AMA. Time Spent with Patient Time attestation: Total time spent providing and/or coordinating discharge services: Discharge Plan Discharge Consulting providers: Hernesto Ardon ; Wilmar Khan ; Deepti Daley ; Niraj Womack ; Marissa Mchugh V. ; John Recio ; Noah Jimenez V. Patient Disposition: Left Against Medical Advice Discharge Medications: No Action pravastatin 10 mg Tablet 10 mg PO DAILY propylthiouracil 50 mg tablet 50 mg PO BID amlodipine 2.5 mg tablet 2.5 mg PO DAILY warfarin 2 mg tablet 2 mg PO DAILY hydrochlorothiazide 12.5 mg capsule 12.5 mg PO DAILY Date of admission: 09/30/21 21:09 Primary Care Provider: Jorge A Lewis Admitting Provider: Mookie Dockery Attending physician on admission: Niraj Duong
== END 2021-10-03 10:52 | disposition left against medical advice (07) | DRG 377 ==
LOC: ANHICU 10-01 09:00 → ANHIMU 10-02 08:02 → ANHICU 10-06 12:17
PROVIDERS: Internal Medicine; Internal Medicine Gastroenterology; Nurse Practitioner; Admitting Provider Family Medicine; PCP Internal Medicine; Visit Provider Chiropractor
PROC: 0DJ08ZZ Inspection of Upper Intestinal Tract, Via Natural or Artificial Opening Endoscopic (ICD-10-PCS; CPT 43235; principal; 2021-10-02 14:00)
DX: K26.0 Acute duodenal ulcer with hemorrhage (principal); E43 Unspecified severe protein-calorie malnutrition; I21.A1 Myocardial infarction type 2; I50.23 Acute on chronic systolic (congestive) heart failure; D62 Acute posthemorrhagic anemia; K31.6 Fistula of stomach and duodenum; C34.90 Malignant neoplasm of unspecified part of unspecified bronchus or lung; Z68.1 Body mass index [BMI] 19.9 or less, adult; N17.9 Acute kidney failure, unspecified; I48.20 Chronic atrial fibrillation, unspecified; N39.0 Urinary tract infection, site not specified; B96.81 Helicobacter pylori [H. pylori] as the cause of diseases classified elsewhere; K22.5 Diverticulum of esophagus, acquired; E87.8 Other disorders of electrolyte and fluid balance, not elsewhere classified; R77.8 Other specified abnormalities of plasma proteins; I07.1 Rheumatic tricuspid insufficiency; R79.1 Abnormal coagulation profile; I34.0 Nonrheumatic mitral (valve) insufficiency; I11.0 Hypertensive heart disease with heart failure; J44.9 Chronic obstructive pulmonary disease, unspecified; E78.5 Hyperlipidemia, unspecified; Z96.651 Presence of right artificial knee joint; Z96.643 Presence of artificial hip joint, bilateral; Z87.891 Personal history of nicotine dependence; Z79.01 Long term (current) use of anticoagulants
CPT/HCPCS: 36415; 36430; 71045; 80048; 80053; 83540; 83550; 83605; 83735; 83880; 84100; 84484; 85014; 85018; 85025; 85027; 85055; 85610; 85730; 86850; 86900; 86901; 86920; 87077; 87081; 87086; 87186; 97161; 97166; A9270; C9113; J1160; J1200; J2704; J3480; J7040; J7120; P9016; P9017

== ENCOUNTER 2021-10-07 17:11 | Emergency (ER) | payer MEDICARE, MEDICAID, SELFPAY ==
[2021-10-07 17:14] VITALS: PULSE 0; RESP 0; TEMP 36.6; O2SAT 99
[2021-10-07] MEDS: SODIUM CHLORIDE 0.9% IV 1,000 ML 999 ML (17:14)
[2021-10-07] MEDS: EPINEPHrine INJ 1 MG/10 ML SYRINGE 3 MG ×2 (17:14→17:17)
[2021-10-07] MEDS: EPINEPHrine INJ 1 MG/10 ML SYRINGE XX (17:21)
--- NOTE | 2021-10-07 19:07 | ED.CPR ---
HPI - CPR General Chief Complaint: Cardiac Arrest/CPR Stated Complaint: AMB Time Seen by Provider: 10/07/21 17:12 Source: EMS and RN notes reviewed Mode of arrival: EMS Limitations: other (Pt was in extremis, with mechanical chest compressions and LMA lung oxygenation via Ambu bag. pt did not speak, and had fixed and dilated pupils with no pulse felt. she was supine and immobile.) History of Present Illness MD complaint: stopped breathing and collapsed during rest Onset (ago): hour(s) (1) Timing confirmed by: spouse Place: home Bystander CPR performed: Yes Shock advised: Yes Number of shocks delivered: 2 (please see EMS notes.) Downtime before ACLS arrival (mins): 20 Initial findings in the field: unresponsive, no respirations, no pulse and PEA ROSC in the field: No Associated injuries: No Known history of: cancer Treatments prior to arrival: other airway device, chest compressions, epinephrine mgs # and amiodarone Related Data Home Medications Medication Instructions Recorded Confirmed pravastatin 10 mg tablet 10 mg PO DAILY 07/04/21 09/30/21 amlodipine 2.5 mg tablet 2.5 mg PO DAILY 09/30/21 09/30/21 hydrochlorothiazide 12.5 mg capsule 12.5 mg PO DAILY 09/30/21 09/30/21 propylthiouracil 50 mg tablet 50 mg PO BID 09/30/21 10/01/21 warfarin 2 mg tablet 2 mg PO DAILY 09/30/21 10/01/21 Allergies Allergy/AdvReac Type Severity Reaction Status Date / Time morphine Allergy Unknown Verified 10/07/21 19:29 NSAIDS (Non-Steroidal Allergy Unknown Verified 10/07/21 19:29 Anti-Inflamma Review of Systems Review of Systems: ROS unobtainable: Yes unobtainable due to endotracheal tube PMFSH Past Medical History Medical History Afib CHF (congestive heart failure) COPD (chronic obstructive pulmonary disease) Hypertension Hypothyroidism Left knee DJD Lung cancer Rheumatoid arthritis Surgical History Surgical History History of total left hip arthroplasty History of total right hip arthroplasty History of total right knee replacement (TKR) Social History Social History Smoking packs per day: 1.5 Smoking cigarettes per day: 30.0 Years smoked: 54 Smoking pack-years: 81.00 Smoking status: Former smoker Tobacco type: cigarettes Alcohol intake: current Drinks per week: 21 Substance use: former Substance use type: marijuana Gender identity (if verbalized by the patient): Female Spiritual care concerns: No Exam Const: Nutritional Appearance: thin (pt was cachexic, laying immobile and pulseless with fixed and dilated pupil) Course Course Emergency Course: Pt was pronounced at 1721. See nurses notes re ACLS protocol resuscitation. Reevaluation(s) Reevaluation #1: . Date: 10/07/21 Time: 17:21 MDM - Cardiac Arrest/CPR Differential Diagnosis Differential diagnosis: Likely cardiac arrest and sudden cardiac Medical Records Attestation: I reviewed the patient's medical records. Critical Care Time Critical Care Time Critical Care Time: Yes Total Critical Care Time: 15 Discharge Plan Discharge Clinical Impression: Cardiac arrest Patient Disposition: Condition: Prescriptions: No Action pravastatin 10 mg Tablet 10 mg PO DAILY propylthiouracil 50 mg tablet 50 mg PO BID amlodipine 2.5 mg tablet 2.5 mg PO DAILY warfarin 2 mg tablet 2 mg PO DAILY hydrochlorothiazide 12.5 mg capsule 12.5 mg PO DAILY Follow-up/Referrals: UNKNOWN,DOCTOR [Primary Care Provider] - Time of Disposition: 17:21
--- NOTE | 2021-10-07 19:49 | PC.NURSE ---
1714 PT ARRIVES ACLS PROTOCOL IN PLACE, NO SIGNS OF LIFE. MADELYN AIRWAY IN PLACE AND LUCUS PERFORMING COMPRESSIONS. IO TO RT LOWER LEG WITH IVF INFUSING. [address] CAMPOS, POST EPI X3 NO CHANGE IN PT STATUS. ASYSTOLE. [facility] ALICE NOTIFIED AND RELEASED 1820 [facility] NOTIFIED PER [place] RN, PT IS NOT A CANDIDATE FOR DONATION 1830 YOANDY IN ED AND NOTIFIED OF . HE REPORTS THEY WERE SITTING ON THE COUGH WATCHING TV AND SHE SLUMPED OVER, STOPPED BREATHING AND DID NOT HAVE A HEART BEAT. HE CALLED 911 AND INITIATED CPR. HE REPORTS SHE RECENTLY SIGNED HERSELF OUT OF [facility] AM DUE TO HALLUCINATIONS AND WANTING TO BE HOME. HE REPORTS DECLINE IN STATUS, WITH PT NOT EATING OR DRINKING MUCH. HE SIGNS ALL PAPERWORK, TOOK SILVER BAND HOME WITH HIM. PT HAD NO OTHER BELONGINGS. REQUESTS [facility] TO BE NOTIFIED. [facility] POST [facility]ARE PROVIDED ALL LINES AND TUBES REMOVED PRIOR TO VIEWING BODY, UNABLE TO PLACE IN POST MORTUM BAG, NONE AVAILABLE. PT DOES HAVE ID BRACELET ON. 191 [facility] HAS PICKED UP BODY [address] DR HEARD NOTIFIED PER DR CAMPOS, HE IS TO SIGN.
== END 2021-10-07 19:15 | disposition expired ==
PROVIDERS: Emergency Provider Emergency Medicine; PCP Internal Medicine
DX: I46.9 Cardiac arrest, cause unspecified (principal); I48.91 Unspecified atrial fibrillation; I50.9 Heart failure, unspecified; J44.9 Chronic obstructive pulmonary disease, unspecified; E03.9 Hypothyroidism, unspecified; Z85.118 Personal history of other malignant neoplasm of bronchus and lung; Z87.891 Personal history of nicotine dependence
CPT/HCPCS: 92950; 99285; J0153; J0171; J0282; J7030